=== PATIENT | male | born 1975 | race Caucasian/White ===

== ENCOUNTER → 2019-09-12 12:49 | Outpatient (BNVA) | payer OTHER, SELFPAY | PROVIDERS: Family Provider Nurse Practitioner; PCP Internal Medicine; Visit Provider Nurse Practitioner Psychiatric/Mental Health | DX: F43.12 Post-traumatic stress disorder, chronic (principal); F06.4 Anxiety disorder due to known physiological condition | CPT/HCPCS: 99214; 99999 ==

== ENCOUNTER → 2019-10-10 09:39 | Outpatient (BNVA) | payer OTHER, SELFPAY | PROVIDERS: Family Provider Nurse Practitioner; PCP Internal Medicine; Visit Provider Nurse Practitioner Psychiatric/Mental Health | DX: F43.12 Post-traumatic stress disorder, chronic (principal); F06.4 Anxiety disorder due to known physiological condition | CPT/HCPCS: 99212 ==

== ENCOUNTER → 2019-12-03 07:57 | Outpatient (BNVA) | payer OTHER, SELFPAY | PROVIDERS: Family Provider Nurse Practitioner; Visit Provider Nurse Practitioner Psychiatric/Mental Health | DX: F43.12 Post-traumatic stress disorder, chronic (principal); F06.4 Anxiety disorder due to known physiological condition | CPT/HCPCS: G0463 ==

== ENCOUNTER → 2019-12-04 08:32 | Outpatient (BNVA) | payer OTHER, SELFPAY | PROVIDERS: Family Provider Nurse Practitioner; Visit Provider Counselor Professional | DX: F43.12 Post-traumatic stress disorder, chronic (principal); F16.283 Hallucinogen dependence with hallucinogen persisting perception disorder (flashbacks) | CPT/HCPCS: 90834 ==

== ENCOUNTER → 2020-01-01 08:50 | Outpatient (BNVA) | payer OTHER, SELFPAY | PROVIDERS: Family Provider Nurse Practitioner; Visit Provider Counselor Professional | DX: F43.12 Post-traumatic stress disorder, chronic (principal); F16.283 Hallucinogen dependence with hallucinogen persisting perception disorder (flashbacks) | CPT/HCPCS: 90834 ==

== ENCOUNTER 2020-01-13 15:46 | Outpatient (CLI) | payer OTHER, SELFPAY ==
--- NOTE | 2020-01-13 15:54 | CT_ITS ---
WS: [id number] CT THORACIC SPINE HISTORY: THORACIC SPINE PAIN TECHNIQUE: Contiguous 2.5 mm axial images are reviewed to thoracic spine. Images are reformatted in s agittal and coronal planes. All CT scans at [facility] use at least one of these dose opt imization techniques: automated exposure control; mA and/or kV adjustment per patient size (includes targeted exams where dose is matched to clinical indication); or iterative reconstruction. DLP: 1322.50 mGy-cm. COMPARISON: MRI of thoracic spine 12/08/2016 Mild increase in thoracic kyphosis. There is very slight anterior wedging of T6, T7 and T8 8. No acut e fractures. Dorsal column stimulator electrodes posterior to the thecal sac at the T6-7 level. T1-2: Mild osteophytic ridging. No stenosis. T2-3: Normal. T3-4: Normal. T4-5: Normal. T5-6: Normal. T6-7: Bilateral foramina are not well-visualized due to artifact from the electrodes. T7-8: Normal. T8-9: Normal. T9-10: Mild bilateral facet joint arthritis and vertebral body osteophytes. No significant stenosis. T10-11: Very minimal encroachment upon the thecal sac by osteophyte disease and facet disease. Mild bilateral foraminal stenosis. T11-12: No significant stenosis. Paravertebral soft tissues are negative. CT/CT thoracic spin wo con* [id number] IMPRESSION: 1. No significant central or foraminal stenosis. 2. Mild bilateral foraminal stenosis at T10-11 due to osteophytes and facet di sease. Not significantly progressed since 2017. 3. No significant disc protrusions.
== END 2020-01-13 15:47 | disposition home or self-care (01) ==
LOC: RADWPI 15:51
PROVIDERS: PCP Nurse Practitioner; Visit Provider Nurse Practitioner
DX: M54.6 Pain in thoracic spine (principal); M48.04 Spinal stenosis, thoracic region
CPT/HCPCS: 72128

== ENCOUNTER → 2020-01-15 08:16 | Outpatient (BNVA) | payer OTHER, SELFPAY | PROVIDERS: Family Provider Nurse Practitioner; Visit Provider Counselor Professional | DX: F43.12 Post-traumatic stress disorder, chronic (principal); F16.283 Hallucinogen dependence with hallucinogen persisting perception disorder (flashbacks) | CPT/HCPCS: 90834 ==

== ENCOUNTER → 2020-01-29 08:16 | Outpatient (BNVA) | payer OTHER, SELFPAY | PROVIDERS: Family Provider Nurse Practitioner; Visit Provider Counselor Professional | DX: F43.12 Post-traumatic stress disorder, chronic (principal); F16.283 Hallucinogen dependence with hallucinogen persisting perception disorder (flashbacks) | CPT/HCPCS: 90834 ==

== ENCOUNTER → 2020-02-21 09:16 | Outpatient (BNVA) | payer OTHER, SELFPAY | PROVIDERS: Family Provider Nurse Practitioner; Visit Provider Counselor Professional | DX: F16.283 Hallucinogen dependence with hallucinogen persisting perception disorder (flashbacks) (principal); F43.12 Post-traumatic stress disorder, chronic | CPT/HCPCS: 90832; 90834 ==

== ENCOUNTER → 2020-03-02 10:20 | Outpatient (BNVA) | payer OTHER, SELFPAY | PROVIDERS: Family Provider Nurse Practitioner; Visit Provider Nurse Practitioner Psychiatric/Mental Health | DX: F06.4 Anxiety disorder due to known physiological condition (principal); F43.12 Post-traumatic stress disorder, chronic | CPT/HCPCS: 99212 ==

== ENCOUNTER → 2020-03-18 08:23 | Outpatient (BNVA) | payer OTHER, SELFPAY | PROVIDERS: Family Provider Nurse Practitioner; Visit Provider Counselor Professional | DX: F43.12 Post-traumatic stress disorder, chronic (principal); F16.283 Hallucinogen dependence with hallucinogen persisting perception disorder (flashbacks); F41.9 Anxiety disorder, unspecified | CPT/HCPCS: 90834 ==

== ENCOUNTER → 2020-04-29 08:09 | Outpatient (BNVA) | payer OTHER, SELFPAY | PROVIDERS: Family Provider Nurse Practitioner; Visit Provider Counselor Professional | DX: F43.12 Post-traumatic stress disorder, chronic (principal); F16.283 Hallucinogen dependence with hallucinogen persisting perception disorder (flashbacks); F41.9 Anxiety disorder, unspecified | CPT/HCPCS: 90834 ==

== ENCOUNTER → 2020-05-20 08:56 | Outpatient (BNVA) | payer OTHER, SELFPAY | PROVIDERS: Family Provider Nurse Practitioner; Visit Provider Counselor Professional | DX: F43.12 Post-traumatic stress disorder, chronic (principal); F41.1 Generalized anxiety disorder | CPT/HCPCS: 90834 ==

== ENCOUNTER → 2020-05-25 08:22 | Outpatient (BNVA) | payer OTHER, SELFPAY | PROVIDERS: Family Provider Nurse Practitioner; Visit Provider Nurse Practitioner Psychiatric/Mental Health | DX: F06.4 Anxiety disorder due to known physiological condition (principal); F43.12 Post-traumatic stress disorder, chronic | CPT/HCPCS: 99213 ==

== ENCOUNTER → 2020-07-17 13:53 | Outpatient (BNVA) | payer OTHER, SELFPAY | PROVIDERS: Family Provider Nurse Practitioner; Visit Provider Counselor Professional | DX: F43.12 Post-traumatic stress disorder, chronic (principal); F16.283 Hallucinogen dependence with hallucinogen persisting perception disorder (flashbacks); F41.9 Anxiety disorder, unspecified | CPT/HCPCS: 90834 ==

== ENCOUNTER → 2020-08-27 14:54 | Outpatient (BNVA) | payer OTHER, SELFPAY | PROVIDERS: Family Provider Nurse Practitioner; Visit Provider Counselor Professional | DX: F43.12 Post-traumatic stress disorder, chronic (principal); F41.1 Generalized anxiety disorder | CPT/HCPCS: 90834 ==

== ENCOUNTER → 2020-09-24 10:50 | Outpatient (BNVA) | payer OTHER, SELFPAY | PROVIDERS: Family Provider Nurse Practitioner; Visit Provider Counselor Professional | DX: F43.12 Post-traumatic stress disorder, chronic (principal); F16.283 Hallucinogen dependence with hallucinogen persisting perception disorder (flashbacks); F41.9 Anxiety disorder, unspecified | CPT/HCPCS: 90834 ==

== ENCOUNTER → 2020-09-29 08:04 | Outpatient (BNVA) | payer OTHER, SELFPAY | PROVIDERS: Family Provider Nurse Practitioner; Visit Provider Nurse Practitioner Psychiatric/Mental Health | DX: F06.4 Anxiety disorder due to known physiological condition (principal); F43.12 Post-traumatic stress disorder, chronic | CPT/HCPCS: 99213 ==

== ENCOUNTER → 2020-12-29 07:55 | Outpatient (BNVA) | payer OTHER, SELFPAY | PROVIDERS: Family Provider Nurse Practitioner; Visit Provider Nurse Practitioner Psychiatric/Mental Health | DX: F06.4 Anxiety disorder due to known physiological condition (principal); F43.12 Post-traumatic stress disorder, chronic | CPT/HCPCS: 99213 ==

== ENCOUNTER 2021-02-01 15:22 | Outpatient (CLI) | payer OTHER, SELFPAY ==
--- NOTE | 2021-02-01 15:40 | CT_ITS ---
WS: [id number] Exam: CT cervical spin wo con* [id number] Date/Time of Exam: 02/01/2021 3:40 PM Reason For Exam: THORACIC AND CERVICAL DEGENERATIVE DISC DISEASE DLP: 1855.[address] scans at [facility] use at least one of these dose optimization techniques: automated e xposure control; mA and/or kV adjustment per patient size (includes targeted exams where dose is matc hed to clinical indication); or iterative reconstruction. Comparison 07/20/2017. No fracture or dislocation. Stable-appearing interbody fusion at C5-C6 with anterior plate and screw fixation. No sign of obvious hardware failure. The bony spinal canal is patent. The bony neural partha raul are patent. No sign of bone destruction. Detail of the spinal cord and discs are very limited wit hout intrathecal contrast. Goitrous enlargement of the thyroid gland noted. CT/CT cervical spin wo con* [id number] IMPRESSION: 1. Stable-appearing interbody fusion at C5-C6 in good alignment. 2. No sign of obvious spinal canal stenosis or foraminal stenosis. 3. Goitrous enlargement of the thyroid gland.
--- NOTE | 2021-02-01 15:40 | CT_ITS ---
WS: [email or web address] Exam: CT thoracic spin wo con* [id number] Date/Time of Exam: 02/01/2021 3:40 PM Reason For Exam: THORACIC AND CERVICAL DEGENERATIVE DISC DISEASE DLP: 1236.[address] scans at [facility] use at least one of these dose optimization techniques: automated e xposure control; mA and/or kV adjustment per patient size (includes targeted exams where dose is matc hed to clinical indication); or iterative reconstruction. The T-spine is evaluated in the axial plane with sagittal coronal reconstructed images. Compared to p rior study 01/13/2020. There was no sign of disc herniation or central spinal canal stenosis. The bony spinal canal is paten t. No significant foraminal stenosis seen. No bone destruction or fracture. Mild spondylosis. Neuros timulator electrodes are in the lower thoracic spinal canal. Paraspinal soft tissue structures are un remarkable. No significant scoliosis or developmental anomaly CT/CT thoracic spin wo con* [id number] IMPRESSION: 1. No sign of central canal stenosis or disc herniation. 2. Minimal spondylosis. No fracture or bone destruction. 3. Neurostimulator electrodes in the mid thoracic spinal canal.
--- NOTE | 2021-02-01 15:41 | XR_ITS ---
WS: [email or web address] Exam: XR shoulder RT min 2V* [id number] Date/Time of Exam: 02/01/2021 3:42 PM Reason For Exam: SHOULDER PAIN The projections of the shoulder reveal no fractures, anomalies, soft tissue swelling, or calcificatio ns. There is normal bony alignment. No irregularity of the bony architecture is noted. XR/XR shoulder RT min 2V* [id number] IMPRESSION: Negative right shoulder.
== END 2021-02-01 15:23 | disposition home or self-care (01) ==
PROVIDERS: Visit Provider General Practice
DX: M51.34 Other intervertebral disc degeneration, thoracic region (principal); M50.30 Other cervical disc degeneration, unspecified cervical region; M25.511 Pain in right shoulder; E04.9 Nontoxic goiter, unspecified
CPT/HCPCS: 72125; 72128; 73030

== ENCOUNTER → 2021-02-25 14:00 | Outpatient (BNVA) | payer OTHER, SELFPAY | PROVIDERS: PCP Family Medicine; Visit Provider Counselor Professional | DX: F43.12 Post-traumatic stress disorder, chronic (principal); F16.283 Hallucinogen dependence with hallucinogen persisting perception disorder (flashbacks); F41.9 Anxiety disorder, unspecified | CPT/HCPCS: 90832 ==

== ENCOUNTER → 2021-03-05 12:24 | Outpatient (BNVA) | payer OTHER, SELFPAY | PROVIDERS: PCP Family Medicine; Visit Provider Counselor Professional | DX: F43.12 Post-traumatic stress disorder, chronic (principal); F16.283 Hallucinogen dependence with hallucinogen persisting perception disorder (flashbacks); F41.9 Anxiety disorder, unspecified | CPT/HCPCS: 90834 ==

== ENCOUNTER → 2022-03-16 09:53 | Outpatient (BNVA) | payer OTHER, SELFPAY | PROVIDERS: PCP Family Medicine; Visit Provider Podiatrist Foot & Ankle Surgery | DX: M25.371 Other instability, right ankle (principal); T84.84XA Pain due to internal orthopedic prosthetic devices, implants and grafts, initial encounter; Y79.2 Prosthetic and other implants, materials and accessory orthopedic devices associated with adverse incidents; M96.0 Pseudarthrosis after fusion or arthrodesis | CPT/HCPCS: 73610; 73630; 99204 ==

== ENCOUNTER → 2022-06-29 11:21 | Outpatient (BNVA) | payer OTHER, SELFPAY | PROVIDERS: PCP Family Medicine; Visit Provider Podiatrist Foot & Ankle Surgery | DX: T84.84XA Pain due to internal orthopedic prosthetic devices, implants and grafts, initial encounter (principal); Y79.2 Prosthetic and other implants, materials and accessory orthopedic devices associated with adverse incidents; M96.0 Pseudarthrosis after fusion or arthrodesis | CPT/HCPCS: 73630; 99214 ==

== ENCOUNTER → 2022-09-28 10:37 | Outpatient (BNVA) | payer OTHER, SELFPAY | PROVIDERS: PCP Family Medicine; Visit Provider Podiatrist Foot & Ankle Surgery | DX: T84.84XA Pain due to internal orthopedic prosthetic devices, implants and grafts, initial encounter (principal); M96.0 Pseudarthrosis after fusion or arthrodesis; Y79.2 Prosthetic and other implants, materials and accessory orthopedic devices associated with adverse incidents | CPT/HCPCS: 73630; 99213 ==

== ENCOUNTER → 2023-02-08 10:04 | Outpatient (BNVA) | payer OTHER, SELFPAY | PROVIDERS: PCP Family Medicine; Visit Provider Podiatrist Foot & Ankle Surgery | DX: M79.672 Pain in left foot (principal); T84.84XA Pain due to internal orthopedic prosthetic devices, implants and grafts, initial encounter; M96.0 Pseudarthrosis after fusion or arthrodesis; Y79.2 Prosthetic and other implants, materials and accessory orthopedic devices associated with adverse incidents | CPT/HCPCS: 99213 ==

== ENCOUNTER 2023-12-19 08:22 | Outpatient (CLI) | payer OTHER, SELFPAY ==
--- NOTE | 2023-12-19 08:24 | MR_ITS ---
WS: [id number] MRI THORACIC SPINE noncontrast HISTORY: THORACIC DEGENERATIVE DISC DISEASE COMPARISON: 12/08/2016 TECHNIQUE: Multiplanar sequences are performed in sagittal and axial planes. Mild increase in thoracic kyphosis. Reidentified is very slight anterior wedging of the T6, T7 and T8 . No acute fractures. Schmorl's node along the superior endplate of T7. Cord signal is unchanged. The re is no atrophy or enlargement. Reidentified is subtle increased T2 signal in the central cervical c ord at the T8-9 level which may be a small syrinx. T1-2: Small bilateral paracentral disc protrusions. T2-3: Normal. T3-4: Moderate central disc protrusion contacting and slightly displacing the ventral thecal sac. Sli ghtly increased in size as compared to 12/08/2016. T4-5: Normal. T5-6: Normal. T6-7: 6 very shallow LEFT paracentral disc or osteophyte. No stenosis. T7-8: Normal. T8-9: Small central disc protrusion and facet arthritis. Mild bilateral foraminal stenosis. T9-10: Central disc protrusion contacting the ventral thecal sac with moderate facet joint arthritis. Mild to moderate central with bilateral foraminal stenosis has progressed since 2017. T10-11: Bilateral facet arthritis and moderate foraminal stenosis. T11-12: Normal. MR/MR thoracic spin wo con* [id number] IMPRESSION: 1. No acute thoracic spine fractures. 2. Stable mild anterior wedging of T6, T7 and T8. 3. T9-10: Central disc protrusion and facet arthritis resulting in mild to mod erate central and bilateral foraminal stenosis. Progressed since 2017. 4. T10-11: Moderate bilateral foraminal stenosis. 5. T3-4: Moderate central disc protrusion contacting and displacing the ventra l thecal sac. 6. Increased focal T2 signal in the central thoracic cord is unchanged. May be a small syrinx which has been present on prior studies.
== END 2023-12-19 08:23 | disposition home or self-care (01) ==
LOC: RAD 08:23
PROVIDERS: PCP Nurse Practitioner; Visit Provider Nurse Practitioner Family
DX: M51.34 Other intervertebral disc degeneration, thoracic region (principal); M51.24 Other intervertebral disc displacement, thoracic region; M51.44 Schmorl's nodes, thoracic region; M46.94 Unspecified inflammatory spondylopathy, thoracic region; M99.62 Osseous and subluxation stenosis of intervertebral foramina of thoracic region
CPT/HCPCS: 72146

== ENCOUNTER → 2024-01-17 09:57 | Outpatient (BNVA) | payer OTHER, SELFPAY | PROVIDERS: PCP Nurse Practitioner; Visit Provider Podiatrist Foot & Ankle Surgery | DX: M79.672 Pain in left foot (principal); T84.84XA Pain due to internal orthopedic prosthetic devices, implants and grafts, initial encounter; M96.0 Pseudarthrosis after fusion or arthrodesis; Y79.2 Prosthetic and other implants, materials and accessory orthopedic devices associated with adverse incidents | CPT/HCPCS: 99213 ==

== ENCOUNTER 2024-06-27 14:10 | Emergency (ER) | payer OTHER, SELFPAY ==
[2024-06-27] VITALS (8 sets, daily range): BP systolic 126–156; BP diastolic 76–95; PULSE 47–63; RESP 17; TEMP 36.9; O2SAT 91–100; BMI 24.4
[2024-06-27 14:45] LABS: Basophils % 0.2 %; Eosinophils % 0.1 %; Hematocrit 42.3 % (37-53); Lymphocytes # 4.5 10^3/uL (0.8-4.8); Lymphocytes % 22.7 %; Mean Corpuscular Hemoglobin 31.4 pg (27-33); Mean Corpuscular Volume 89.8 fl (82-101); Mean Platelet Volume 8.8 fL (7.4-10.4); Monocytes # 1.1 10^3/uL (0.2-0.9); Monocytes % 5.3 %; Neutrophils # 14.09 10^3/uL (1.8-7.7); Neutrophils % 71.3 %; Nucleated Red Blood Cells % 0 %; Platelet Count 302 10^3/cmm (157-399); Red Blood Count 4.71 10^6/uL (3.85-5.65); Red Cell Distribution Width 12.7 % (12.1-15.1); White Blood Count 19.76 10^3/uL (3.29-11.43)
[2024-06-27 14:58] LABS: Alanine Aminotransferase 15 U/L (0-41); Albumin Level 4.6 g/dL (3.5-5.2); Alkaline Phosphatase 64 U/L (40-130); Aspartate Amino Transferase 18 U/L (0-40); Blood Urea Nitrogen 22 mg/dL (6-20); Calcium 9.5 mg/dL (8.5-10.5); Carbon Dioxide 32 mmol/L (22-29); Chloride 95 mmol/L (98-107); Creatinine Clr Calc Pharmacy 116.4739; Glomerular Filtration Rate 89.3 mL/min (90-130); Glucose 111 mg/dL (65-115); Lipase 36 U/L (13-60); Osmolality Calculated 294 mOsm/kg (285-295); Sodium 140 mmol/L (136-145); Total Bilirubin 0.7 mg/dL (0.15-1.2); Total Protein 7.6 g/dL (6.6-8.7)
[2024-06-27 15:01] LABS: Anion Gap 16.6 (5-19); Potassium 3.6 mmol/L (3.5-5.1)
--- NOTE | 2024-06-27 16:31 | CTR_ITS ---
PROCEDURE INFORMATION: Exam: CT Chest With Contrast; Diagnostic Exam date and time: 06/27/2024 5:12 PM Age: 48 years old Clinical indication: Nausea and vomiting; Other: Abdominal pain, n/v, constipation TECHNIQUE: Imaging protocol: Diagnostic computed tomography of the chest with contrast. Radiation optimization: All CT scans at this facility use at least one of these dose optimization techniques: automated exposure control; mA and/or kV adjustment per patient size (includes targeted exams where dose is matched to clinical indication); or iterative reconstruction. Contrast material: OMNI 350; Contrast volume: 100 ml; Contrast route: INTRAVENOUS (IV); COMPARISON: thoracic missy courtney con* [id number] 12/19/2023 8:43 AM RADIATION DOSE METRICS: Total DLP (mGy-cm): 1069.38 FINDINGS: Thyroid: Grossly unremarkable. Lungs: No focal consolidation. Pleural spaces: No pleural effusion. No pneumothorax. Heart: No cardiomegaly. No pericardial effusion. Mediastinal space: Trachea and central airways are grossly patent. No evidence of mediastinal mass or hematoma. Lymph nodes: No evidence of mediastinal or hilar adenopathy. Vasculature: No aneurysmal dilatation of the thoracic aorta. No evidence of dissection. Though this study is not tailored to evaluate for pulmonary thromboembolism, there is no evidence of PE within limitations of respiratory motion. Bones/joints: No evidence of acute fracture or aggressive osseous lesion. Soft tissues: No fluid collection or hematoma in the superficial soft tissues. PROCEDURE INFORMATION: Exam: CT Abdomen And Pelvis With Contrast Exam date and time: 06/27/2024 5:12 PM Age: 48 years old Clinical indication: Nausea and vomiting; Other: Abdominal pain, n/v, constipation TECHNIQUE: Imaging protocol: Computed tomography of the abdomen and pelvis with contrast. Radiation optimization: All CT scans at this facility use at least one of these dose optimization techniques: automated exposure control; mA and/or kV adjustment per patient size (includes targeted exams where dose is matched to clinical indication); or iterative reconstruction. Contrast material: OMNI 350; Contrast volume: 100 ml; Contrast route: INTRAVENOUS (IV); COMPARISON: thoracic [facility] con* [id number] 12/19/2023 8:43 AM RADIATION DOSE METRICS: Total DLP (mGy-cm): 1069.38 FINDINGS: Diaphragm: No evidence of diaphragmatic defect. Mild wall thickening of the distal esophagus, which may reflect esophagitis. Liver: No focal hepatic lesion. Gallbladder and biliary ducts: Status post cholecystectomy. Mild central intrahepatic biliary dilatation. There is mild extrahepatic biliary dilatation, frequently seen post cholecystectomy. CBD measures up to 8 mm. No evidence of intraductal stone. Pancreas: Unremarkable. Spleen: Unremarkable. Adrenal glands: Unremarkable. Kidneys and ureters: There is a simple appearing left-sided renal cyst for which dedicated imaging follow-up is not required. Otherwise no evidence of renal parenchymal abnormality. No hydronephrosis or ureteral stone. Stomach and bowel: No evidence of bowel obstruction or perienteric inflammatory changes. Wall thickening of the gastric pylorus/duodenum bulb. Appendix: Normal appendix. Intraperitoneal space: No evidence of free air or fluid collection. Vasculature: Moderate aortobiiliac atherosclerosis without aneurysmal dilatation or dissection. The celiac trunk, SMA and VELMA are grossly patent. No evidence of IVC thrombus. The portal vein, SMV and splenic veins are grossly patent. Lymph nodes: No adenopathy. Urinary bladder: Grossly unremarkable. Reproductive: Grossly unremarkable. Bones/joints: No evidence of acute fracture or aggressive osseous lesion. Soft tissues: No evidence of fluid collection or hematoma in the superficial soft tissues. CT/CT chest abdpel w/*[id number] IMPRESSION: 1. No evidence of acute abnormality in the chest. IMPRESSION: 1. No evidence of acute abnormality in the abdomen or pelvis. 2. Mild wall thickening of the gastric pylorus/duodenum bulb, possibly reflecting a nonspecific gastroenteritis or peptic ulcer disease. If persistently symptomatic, consider follow-up outpatient GI evaluation. 3. Mild thickening of the distal esophagus, possibly reflecting esophagitis.
[2024-06-27] MEDS: ondansetron 2 mg/ML SDV 2 mL 4 MG IVP ×2 (16:51→18:20)
[2024-06-27] MEDS: HYDROmorphone 0.5 MG/0.5 ML INJ IVP (16:51)
[2024-06-27] MEDS: lactated ringers 1,000 ML 999 ML IV (16:56)
[2024-06-27 17:21] LABS: INR 0.92 (0.8-1.2)
[2024-06-27 17:22] LABS: Partial Thromboplastin Time 32.2 SECONDS (23.9-36.7)
[2024-06-27] MEDS: iohexol 350 mg/mL 500 mL Btl (per mL) IV (17:23)
[2024-06-27 17:26] LABS: Creatine Phosphokinase 85 U/L (39-308); Phosphorus 3.4 mg/dL (2.5-4.5)
[2024-06-27 17:27] LABS: Alcohol Level < 10 mg/dL (0-10); Lactic Sepsis W/Reflex 1.6 mmol/L (0.5-2.2)
[2024-06-27] MEDS: HYDROmorphone 0.5 MG/0.5 ML INJ 1 MG IVP (18:20)
--- NOTE | 2024-06-27 18:31 | ECG_ITS ---
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 Measurements Intervals [place] Rate: 54 P: 50 IA: 148 QRS: 56 QRSD: 105 T: 62 QT: 440 QTc: 417 Interpretive Statements SINUS BRADYCARDIA Compared to ECG 05/05/2016 16:42:53 Intraventricular conduction delay no longer present Prolonged QT interval no longer present Electronically Signed On 06-29-2024 13:08:19 CDT by Shirley Velazquez M.D. [email or web address] [id number]
[2024-06-27 18:53] LABS: Bilirubin Urine Negative (Negative); Blood Urine Negative (Negative); Glucose Urine UA Negative (Normal); Ketones Urine Trace (Negative); Leukocyte Esterase Urine Negative (Negative); Nitrate Urine Negative (Negative); Protein Urine 1+ (Negative); Urine Appearance Clear (CLEAR); Urine Color Yellow (Yellow); pH Urine >=9.0 (5-7)
[2024-06-27 18:55] LABS: Add Urine Microscopic? YES; Bacteria Urine None Seen /hpf; Squamous Epithelial Cell Urine 0-5 /hpf (0-5); WBC Urine 0-5 /hpf (0-5)
[2024-06-27 18:59] LABS: Specific Gravity, Urine 1.072 (1.005-1.030)
[2024-06-27 19:00] LABS: Add Urine Culture? No
--- NOTE | 2024-06-27 19:49 | W.ED.NAVMDI ---
HPI - Nausea/Vomiting/Diarrhea General: Chief complaint: Nausea/Vomiting/Diarrhea Stated complaint: n,v, high hernia Time Seen by Provider: 06/27/24 16:17 Source: patient and family Mode of arrival: ambulatory Limitations: no limitations History of Present Illness: Patient with severe nausea vomiting, history of hiatal hernia. Did have an episode of diarrhea. Last bowel movement was 3 days ago. The bowel movements have become less and less frequent recently. He reports a 60 pound weight loss over the past 12 months with at least 10 of that weight loss in the last month. No intention of losing weight. He reports he is just unable to keep food or fluids down. Feels dehydrated. In the ER he is tolerating ice and water down. Was still having acid reflux actively here in the ER. Has been prescribed Carafate by the [place] but is not taking it. Is also been prescribed Prilosec by the [place] and has not been taking it. Related Data Home Medications ?Medication ?Instructions ?Recorded ?Confirmed cetirizine 10 mg tablet 10 mg PO DAILY 06/27/24 06/27/24 diclofenac sodium 1 % topical gel 4 g topical QID 06/27/24 06/27/24 rosuvastatin 10 mg tablet 10 mg PO DAILY 06/27/24 06/27/24 sucralfate 1 gram tablet 1 g PO QID 06/27/24 06/27/24 trazodone 150 mg tablet 150 mg PO DAILY 06/27/24 06/27/24 Previous Rx's ?Medication ?Instructions ?Recorded metoclopramide HCl 10 mg tablet 10 mg PO Q8H PRN nausea and 06/27/24 (Reglan) vomiting #30 tabs ondansetron 8 mg disintegrating 8 mg PO Q8H PRN nausea and 06/27/24 tablet vomiting 5 days #30 tabs pantoprazole 40 mg tablet,delayed 40 mg PO DAILY 6 weeks #45 tabs 06/27/24 release (Protonix) sucralfate 1 gram tablet (Carafate) 1 g PO TID 4 weeks #84 tabs 06/27/24 Allergies Allergy/AdvReac Type Severity Reaction Status Date / Time codeine Allergy Mild Upsets Verified 05/06/24 12:51 stomach morphine Allergy Mild Upsets Verified 05/06/24 12:51 stomach Review of Systems General: Reports: 10 or more systems reviewed and unremarkable except in HPI and below PFSH ED PFSH: Medical History Chronic post-traumatic stress disorder (PTSD) See below. Social History Smoking and tobacco/nicotine status: former use of tobacco/nicotine Quit status (tobacco/nicotine): quit date established Second hand smoke exposure: Yes Current gender identity: Male Physical Exam Const: COMMON NORMALS: no acute distress, average body habitus, patient oriented x3, healthy appearing, alert and well nourished GENERAL APPEARANCE: well kempt and well developed HENMT: COMMON NORMALS: normocephalic, atraumatic, external ears normal and moist oral mucous membranes HEAD & SCALP: normocephalic and atraumatic EXTERNAL EAR: Yes external ears normal Eye: COMMON NORMALS: Equal, round and reactive pupils present, EOMs intact bilaterally and conjunctivae normal CONJUNCTIVA: Yes conjunctivae normal PUPIL: Yes Equal, round and reactive pupils present Neck/C-Spine: COMMON NORMALS: full ROM, no lymphadenopathy and supple Chest: CHEST: Yes Symmetrical chest wall rise and No Surgical scars present (Chest) Resp: COMMON NORMALS: normal respiratory effort, No retractions, No use of accessory muscles and clear to auscultation bilaterally AUSCULTATION: clear to auscultation bilaterally Cardio: COMMON NORMALS: regular rate, regular rhythm, S1 normal heart sound present, S2 normal heart sound present, No gallops present (Cardio), No clicks present (Cardio), No murmurs present (Cardio) and No rub (Cardio) RATE: regular rate RHYTHM: regular rhythm HEART SOUNDS: S1 normal heart sound present, S2 normal heart sound present and no murmurs PERIPHERAL PULSES: other (Radial pulses 2+ and symmetric) GI: COMMON NORMALS: Soft to palpation and no masses INSPECTION: No abdominal distension PALPATION: Yes Soft to palpation, No Guarding due to palpation present (GI) and No Rebound tenderness present OTHER: Global abdominal tenderness there worse in the epigastric. No guarding or rebound. : COMMON NORMALS: Yes no CVA tenderness BLADDER/KIDNEY EXAM: Yes no CVA tenderness Back/Pelvis: COMMON NORMALS: no CVA tenderness Extremity: COMMON NORMALS: normal to inspection, full ROM, capillary refill normal and no clubbing, cyanosis or edema Neuro: COMMON NORMALS: patient oriented x3 SENSORIUM/ORIENTATION: Yes alert Psych: APPEARANCE: Yes well kempt Skin: COMMON NORMALS: no rashes or lesions noted, no wounds, turgor normal and no jaundice GENERAL SKIN EXAM: no rashes or lesions noted and turgor normal Course Vital Signs: Vital signs: Vital Signs Temperature 98.4 F 06/27/24 14:14 Pulse Rate 60 06/27/24 20:06 Respiratory Rate 17 06/27/24 14:14 Blood Pressure 128/80 06/27/24 20:06 Pulse Oximetry 91 06/27/24 20:06 Oxygen Delivery Me thod Room Air 06/27/24 19:30 MDM - Nausea/Vomiting/Diarrhea Medical Decision Making Patient concerns in severe weight loss difficulty swallowing. CT scan done which shows a thickened part of the esophagus and stomach given his history this is likely inflammation. I have advised patient to follow-up with GI as soon as possible. [facility]. He has had scopes in the past and biopsies done in the past. He has been placed on Carafate and Prilosec in the past for this problem as well. Here portal he is stopped those because he felt like they were bad for him long-term based on some things he had read. However now he is found himself in the position of being unable to tolerate food or drink which I hypothesized is also bad in the long-term. Affect patient about his concerns with daily medication and functional quality of life along with actual length of life with being able to eat. Patient and seem to express understanding. Advised him to take medications as prescribed and again follow-up with GI. May need off-and-on treatment if he does not want to continue daily treatment. Differential includes gastroenteritis, small bowel obstruction last bowel movement 3 days ago. Hiatal hernia, volvulus, intussusception, ileus, constipation, malignancy. Workup from that initial diagnostic differential seems to relate more of a gastritis and esophagitis secondary to long-term reflux. EKG personally reviewed, no previous to comparison. EKG performed at 1831, reviewed 183. Sinus bradycardia rate of 54, QTc 425, normal axis no ST elevation. Differential Diagnosis Likely gastroenteritis Lab Data 06/27/24 14:34 06/27/24 14:34 Radiology Impressions Chest/Abdomen/Pelvis CT 06/27/24 16:31 IMPRESSION: 1. No evidence of acute abnormality in the chest. IMPRESSION: 1. No evidence of acute abnormality in the abdomen or pelvis. 2. Mild wall thickening of the gastric pylorus/duodenum bulb, possibly reflecting a nonspecific gastroenteritis or peptic ulcer disease. If persistently symptomatic, consider follow-up outpatient GI evaluation. 3. Mild thickening of the distal esophagus, possibly reflecting esophagitis. Laboratory Results WBC 19.76 10^3/uL (3.29-11.43) H 06/27/24 14:34 RBC 4.71 10^6/uL (3.85-5.65) 06/27/24 14:34 Hgb 14.80 g/dL (11.27-16.99) 06/27/24 14:34 Hct 42.3 % (37-53) 06/27/24 14:34 MCV 89.8 fl (82-101) 06/27/24 14:34 MCH 31.4 pg (27-33) 06/27/24 14:34 MCHC 35.0 g/dL (30-55) 06/27/24 14:34 RDW 12.7 % (12.1-15.1) 06/27/24 14:34 Plt Count 302 10^3/cmm (157-399) 06/27/24 14:34 MPV 8.8 fL (7.4-10.4) 06/27/24 14:34 Neut % (Auto) 71.3 % 06/27/24 14:34 Lymph % (Auto) 22.7 % 06/27/24 14:34 [place] % (Auto) 5.3 % 06/27/24 14:34 Eos % (Auto) 0.1 % 06/27/24 14:34 Baso % (Auto) 0.2 % 06/27/24 14:34 Neut # (Auto) 14.09 10^3/uL (1.8-7.7) H 06/27/24 14:34 Lymph # (Auto) 4.5 10^3/uL (0.8-4.8) 06/27/24 14:34 [place] # (Auto) 1.1 10^3/uL (0.2-0.9) H 06/27/24 14:34 Eos # (Auto) 0.0 10^3/uL (0.0-0.8) 06/27/24 14:34 Baso # (Auto) 0.0 10^3/uL (0.0-0.1) 06/27/24 14:34 Nucleated RBC % (auto) 0 % 06/27/24 14:34 Nucleated RBCs # 0.0 /100WBC 06/27/24 14:34 PT 13.00 SECONDS (12.1-14.9) 06/27/24 14:34 INR 0.92 (0.8-1.2) 06/27/24 14:34 APTT 32.2 SECONDS (23.9-36.7) 06/27/24 14:34 Sodium 140 mmol/L (136-145) 06/27/24 14:34 Potassium 3.6 mmol/L (3.5-5.1) 06/27/24 14:34 Chloride 95 mmol/L (98-107) L 06/27/24 14:34 Carbon Dioxide 32 mmol/L (22-29) H 06/27/24 14:34 Anion Gap 16.6 (5-19) 06/27/24 14:34 BUN 22 mg/dL (6-20) H 06/27/24 14:34 Creatinine 0.9 mg/dL (0.7-1.2) 06/27/24 14:34 GFR Calculation 89.3 mL/min (90-130) L 06/27/24 14:34 Glucose 111 mg/dL (65-115) 06/27/24 14:34 Calculated Osmolality 294 mOsm/kg (285-295) 06/27/24 14:34 Lactic Acid 1.6 mmol/L (0.5-2.2) 06/27/24 14:34 Calcium 9.5 mg/dL (8.5-10.5) 06/27/24 14:34 Phosphorus 3.4 mg/dL (2.5-4.5) 06/27/24 14:34 Magnesium 2.0 mg/dL (1.7-2.3) 06/27/24 14:34 Total Bilirubin 0.7 mg/dL (0.15-1.2) 06/27/24 14:34 AST 18 U/L (0-40) 06/27/24 14:34 ALT 15 U/L (0-41) 06/27/24 14:34 Alkaline Phosphatase 64 U/L (40-130) 06/27/24 14:34 Creatine Kinase 85 U/L (39-308) 06/27/24 14:34 Total Protein 7.6 g/dL (6.6-8.7) 06/27/24 14:34 Albumin 4.6 g/dL (3.5-5.2) 06/27/24 14: Globulin 3.0 g/dL (1.3-4.6) 06/27/24 14: Lipase 36 U/L (13-60) 06/27/24 14:34 Urine Color Yellow (Yellow) 06/27/24 18:35 Urine Appearance Clear (CLEAR) 06/27/24 18:35 Urine pH >=9.0 (5-7) A 06/27/24 18:35 Ur Specific [place] 1.072 (1.005-1.030) H 06/27/24 18:35 Urine Protein 1+ (Negative) A 06/27/24 18:35 Urine Glucose (UA) Negative (Normal) 06/27/24 18:35 Urine Ketones Trace (Negative) 06/27/24 18:35 Urine Blood Negative (Negative) 06/27/24 18:35 Urine Nitrate Negative (Negative) 06/27/24 18:35 Urine Bilirubin Negative (Negative) 06/27/24 18:35 Urine Urobilinogen 1.0 mg/dL (Negative) 06/27/24 18:35 Ur Leukocyte Esterase Negative (Negative) 06/27/24 18:35 Urine RBC 3-5 /hpf (0-2) 06/27/24 18:35 Urine WBC 0-5 /hpf (0-5) 06/27/24 18:35 Ur Squamous Epith Cells 0-5 /hpf (0-5) 06/27/24 18:35 Amorphous Sediment Not Reportable 06/27/24 18:35 Urine Bacteria None seen /hpf (NONE) 06/27/24 18:35 Hyaline Casts 0.40 /lpf 06/27/24 18:35 Ethyl Alcohol < 10 mg/dL (0-10) 06/27/24 14:34 All radiology interpretation(s) finalized by discharge Discharge Plan Discharge Patient Disposition: Home Clinical Impression: Gastritis, Esophagitis Condition: Stable Prescriptions: New sucralfate [Carafate] 1 gram tablet 1 g PO TID 28 Days Qty: 84 0RF pantoprazole [Protonix] 40 mg tablet,delayed release (DR/EC) 40 mg PO DAILY 42 Days Qty: 45 0RF metoclopramide HCl [Reglan] 10 mg tablet 10 mg PO Q8H PRN (Reason: nausea and vomiting) Qty: 30 0RF ondansetron 8 mg tablet,disintegrating 8 mg PO Q8H PRN (Reason: nausea and vomiting) 5 Days Qty: 30 1RF No Action cetirizine 10 mg Tablet 10 mg PO DAILY sucralfate 1 gram Tablet 1 g PO QID trazodone 150 mg Tablet 150 mg PO DAILY rosuvastatin 10 mg Tablet 10 mg PO DAILY diclofenac sodium 1 % Gel 4 g TOPICAL QID Rx Instructions: apply to single knee, ankle, foot; for foot includes sole/toes/top of foot Discharge Orders: Discharge ED (Routine); Ordered 06/27/24 Ordered By: Ronnie Menendez Referrals: Amrita Tarango, [employer] [Primary Care Provider, Nurse Practitioner] Discharge Diet: Advance as tolerated and As Directed Discharge Activity: Resume usual activity Patient Instructions: Esophagitis (ED) Print Language: Indonesian Coding Level of Care Code ED Family Helper for [facility]
[2024-06-27] MEDS: ondansetron hcl ODT 4 mg Tab 8 MG PO (19:58)
[2024-06-27] MEDS: lidocaine 2% viscous 15 ML, aluminum-mag hydrox-simethicon 30 ML, sucralfate oral liq 1 GM PO (19:59)
== END 2024-06-27 20:08 | disposition home or self-care (01) ==
PROVIDERS: Family Medicine; Emergency Provider Emergency Medicine; PCP Nurse Practitioner
DX: K29.70 Gastritis, unspecified, without bleeding (principal); K20.90 Esophagitis, unspecified without bleeding; Z87.891 Personal history of nicotine dependence
CPT/HCPCS: 36415; 71260; 74177; 80053; 80307; 81001; 82550; 83605; 83690; 83735; 84100; 85025; 85610; 85730; 93005; 96361; 96374; 96375; 96376; 99285; J1171; J2405; J7120; J9999; Q0162

== ENCOUNTER 2024-10-04 08:57 | Emergency (ER) | payer OTHER, SELFPAY ==
--- OUTSIDE RECORDS SUMMARY | 2024-08-20 08:56 | XMS_ITS | Encounter Summary ---
Author Name [facility] [place] [facility] [place] Address [address] [place] [address] Care Team Providers Care Brazer Crawler Torch Name Role Phone BRITTANY SANTOS Primary Care Provider Unavail able Selected Encounter This section includes the information on record at [place] for the Encounter. Date/Time Encounter Type Encounter Description Reason Pro vider Source Aug 20, 2024 01:56 PM Outpatient Encounter ADMIN PAT ACTIVTIES (MASNONCT) IHE Encounter Template Text not used by [place] Plan of Treatment: Future Appointments (+ 6 months) and Future Tests (+/- 45 days) The Plan of Treatment section includes future care activities for the patient from all [place] treatmentfacilities. This section includes future appointments and future orders which are active, pending or scheduled. Future Appointments This section includes appointments that were scheduled to occur 6 months from the date of the Encounter, up to a maximum of 20 appointments. The data comes from all [place] treatment facilities. Appointment Date/Time Appointment Type Appointme nt Facility Name Aug 27, 2024 11:00 AM AMBULATORY - MEDICINE [facility] Social History: Smoking Status (Most current) and Tobacco Use (All prior to encounter date) This section includes the most current, and the historical, smoking and tobacco- related health factors from the [place] facility where the Encounter took place. Current Smoking Status This section includes the most current smoking, or tobacco-related health factor, from the [place] facility where the Encounter took place. Date/Time Current Smoking Status Comment Facil ity Dec 08, 2021 02:00 PM PREVIOUS SMOKER POP LAR [facility] Tobacco Use History This section includes a history of the smoking, or tobacco-related health factors, that were collected on or before the date of the Encounter. The data comes from the [place] facility where the Encounter took place. Date/Time Smoking Status/Tobacco Use Comment F acility Dec 08, 2021 02:00 PM [facility] Advance Directives: All historical and current Section Date Range: From patient's date of to the date document was created. This section includes ALL of a patient's completed or amended [place] Advance and Rescinded Directives. The entries below indicate that a directive exists for the patient, but an actual copy is not included with this document. The data comes from all [place] facilities. Date Advance Directives Provider Source Aug 18, 2011 ADVANCE DIRECTIVE DISCUSSION ROX MATUTE [facility] Encounter Notes: All associated encounter notes This section contains the clinical notes associated to the Encounter. Date/Time Encounter Note(s) Provider Source Aug 20, 2024 01:57 PM CAREGIVER CERTIFIC ATE: LOCAL TITLE: [facility] ADMINISTRATIVE NOTE STANDARD TITLE: CAREGIVER CERTIFICATE DATE OF NOTE: AUG 20, 2024@13:57 ENTRY DATE: AUG 20, 2024@13:57:23 AUTHOR: CHAVO PAUL EXP COSIGNER: URGENCY: STATUS: COMPLETED [facility] ADMINISTRATIVE NOTE Has ADDENDA [facility] wellness contact scheduled with caregiver for 08/26/2024 at 11:00am. /abigail/ CHAVO PAUL RN MSN Signed: 08/20/2024 13:58 08/22/2024 ADDENDUM STATUS: COMPLETED [facility] wellness contact scheduled with caregiver for 08/26/2024 at 11:00am was canceled by clinic. [facility] wellness contact rescheduled with caregiver for 08/28/2024 at 11:00am. /pushpa PAUL RN MSN Signed: 08/22/2024 11:10 CHAVO PAUL [facility]
--- OUTSIDE RECORDS SUMMARY | 2024-08-28 06:00 | XMS_ITS | Encounter Summary ---
Author Name [facility] [place] [facility] [place] Address [address] [place] [address] Care Team Providers Care Harm Reduction Worker Name Role Phone BRITTANY SANTOS Primary Care Provider Unavail able Selected Encounter This section includes the information on record at [place] for the Encounter. Date/Time Encounter Type Encounter Description Reason Provider Source Aug 28, 2024 11:00 AM CASE MANAGEMENT CAREGIVER SUPPORT PROGRAM ICD-10-CM Z71.9 Counseling, unspecified MAURILIO PAUL Encounter Template Text not used by [place] Assessments - Encounter Diagnoses This section includes the primary and secondary diagnoses documented for the Encounter. Date/Time Primary/Secondary Diagnosis Diagnosis Name Provider Source Aug 28, 2024 12:17 PM PRIMARY Counseling, unspecified ADRIANA PAUL [facility] Social History: Smoking Status (Most current) and Tobacco Use (All prior to encounter date) This section includes the most current, and the historical, smoking and tobacco- related health factors from the [place] facility where the Encounter took place. Current Smoking Status This section includes the most current smoking, or tobacco-related health factor, from the [place] facility where the Encounter took place. Date/Time Current Smoking Status Comment Facil itclara Dec 08, 2021 02:00 PM PREVIOUS SMOKER [facility]VEEN [facility] Tobacco Use History This section includes a history of the smoking, or tobacco-related health factors, that were collected on or before the date of the Encounter. The data comes from the [place] facility where the Encounter took place. Date/Time Smoking Status/Tobacco Use Comment F acility Dec 08, 2021 02:00 PM PREVIOUS SMOKER PARVEEN [facility] Advance Directives: All historical and current Section Date Range: From patient's date of to the date document was created. This section includes ALL of a patient's completed or amended [place] Advance and Rescinded Directives. The entries below indicate that a directive exists for the patient, but an actual copy is not included with this document. The data comes from all [place] facilities. Date Advance Directives Provider Source Aug 18, 2011 ADVANCE DIRECTIVE DISCUSSION ROX MATUTE [facility] Encounter Notes: All associated encounter notes This section contains the clinical notes associated to the Encounter. Date/Time Encounter Note(s) Provider Source Aug 28, 2024 11:00 AM CAREGIVER CERTIFIC ATE: LOCAL TITLE: [facility] WELLNESS CONTACT STANDARD TITLE: CAREGIVER CERTIFICATE DATE OF NOTE: AUG 28, 2024@11:00 ENTRY DATE: AUG 28, 2024@11:00:21 AUTHOR: CHAVO PAUL COSIGNER: URGENCY: STATUS: COMPLETED Caregiver Support Program [facility] Wellness Contact This Carver is enrolled in [place]'s Program of Comprehensive Assistance for Family Caregivers (PCA[facility]). While enrolled in PCA[facility], wellness contacts review the 's well-being, adequacy of personal care services being provided by the Family Caregiver(s), and the well-being of the Family Caregiver(s). Wellness contacts occur at a minimum of once every 120 days, and at least one visit must occur in the eligible Carver's home on an annual basis. Date of Visit: Aug Length of visit: 30 minutes The was identified using the following michaels identifiers: Full Name: YRIS PARKS Date of : [birth year] Full Address: [address] [place] [address] [place], [place] [address] Phone #: Email address: Patient Email - NONE FOUND Is the above contact information in the electronic health record and the Caregiver Support Program IT system, correct? Yes Reason for contact: Routine (120-day contact) Individuals providing input include: Carver Primary Family Caregiver Method of contact: Video Telehealth Contact number for backup/emergency communication: location during visit:* Home [address] [place], [place] [address] confirms location is safe and private for visit. Telehealth Disclosure: Visit conducted by synchronous telehealth. verbal consent obtained. Location/emergency number confirmed. Environment surveyed and all participants identified. Virtual conference room locked. INFORMATION is receiving care from: Primary Family Caregiver Name: Vamsi Doty Have there been any changes to the individuals living in the Carver's household? No Have there been any changes in the 's Advance Directive for Health Care, Guardianship/Conservator, or Fiduciary status? No ASSESSMENT How has your physical/mental/emotional health been lately? Details: tori Randolph. My back hurts all the time. I have a prescription for pain pills but I am not a fan of them. was in and out of the hospital last month for GI issues. He has lost 40lbs int he last several months. Saw GI yesterday and will have EGD and colonoscopy on October 02. Have you experienced any changes (falls, ER visits, hospitalizations) and/or any concerns? Yes Details: ER x3 How are you coping with these changes or concerns? Details: Increase protein shakes to try to keep weight up. Do you have any medication concerns? No Do you have the needed medical equipment to support you in your home? Yes Do you feel that your care needs are being adequately met? Yes Do you have any legal or financial planning concerns? No Do you feel comfortable and safe in your home environment? Yes What goals or needs can we assist you with? Details: None SCREENING TOOLS CAREGIVER INPUT Caregiver's understanding of the 's treatment plan: Details: Over the last few months his biggest challenge has been his stomach and keeping him fed and limiting vomiting. Increasing protein in smoothies to slow weight loss. Are there any supports or services the Caregiver needs to adequately meet the needs of the ? No Support services currently in place include: None [facility] staff provided information on the following resources and supports: - Caregiver Health and Wellbeing Coaching - Caregiver Self-Care Courses - Caregiver Support Line (CSL) Education Calls - Caregiver Webinars/Videos - Respite - Veterans Crisis Line (DIAL 988 then PRESS 1) PLAN: No follow-up needed outside of regularly scheduled [facility] Wellness Contacts SUMMARY OF VISIT: calm and cooperative with assessment, no needs identified. /abigail/ CHAVO PAUL RN MSN Signed: 08/28/2024 12:17 CHAVO PAUL [facility]
--- OUTSIDE RECORDS SUMMARY | 2024-10-02 04:30 | XMS_ITS ---
Author Organization [facility] Address [address] [place] [address] Care Team Providers Care Paper Bag Making Machinist Name Role Phone [facility] Primary Care Provid er Unavailable Mona Burns Unavailable [phone] [place], [place] Unavailable Unavailable Sawyer Benavidez Unavailable [phone] Allergies Allergen (clinical drug ingredient) Drug/Non Drug Allergy documented on EMR Reaction Allergy Type Onset Date Status codeine Codeine Sulfate stomach upset Drug Allergy Active codeine Codeine Vomiting Drug Allergy Active morphine Morphine stomach upset Drug Allergy Act jon REASON FOR VISIT Barretts/Hiatal Hernia/GERD/Screening Colon Medications Medication SIG (Take, Route, Frequency, Duration) Notes Start Date End Date Status traZODone HCl 150 MG Tablet 1 tablet at bedtime Orally Once a day Active Sucralfate 1 GM Tablet 1 tablet on an empty stomach Orally four times a day; Duration: 30 day(s) Active oxyCODONE HCl 5 MG Tablet 1 tablet as needed Orally every 12 hrs; Duration: 30 days As needed Not to exceed 2 per day Fill on 09-12-24 due to shipping times 09/12/2024 10/12/2024 Active Pantoprazole Sodium 40 MG Tablet Delayed Release 1 tablet Orally twice a day 09/16/2019 Active clonazePAM 0.5 MG Tablet 1 tablet at bedtime Orally twice a day Not-Taking Sucralfate *Pick strength-form from [employer] for eRX* Not-Taking Pantoprazole Sodium 40 MG Tablet Delayed Release 1 tablet Orally twice a day; Duration: 30 day(s) Not-Taking Protonix *Pick strength-form from [facility] for eRX* Not-Taking Famotidine 20 MG Tablet 2 tablet at bedtime as needed Orally Once a day Active Ondansetron HCl 8 MG Tablet 1 tablet sublingual as needed Orally every 8 hours as needed. 08/27/2024 Active Lexapro *Pick strength-form from [facility] for eRX* Not-Taking Zoloft 50 MG Tablet 1 tablet Orally Once a day Not-Taking Social History Tobacco Use: Social History Observation Description Date Details (start date - stop date) Current Smoker NA - NA Social History Tobacco Use: Social Info Question Answer Notes xTobacco Use/Smoking Are you a current smoker How often do you smoke cigarettes? every day How many cigarettes a day do you smoke? 11-20 Problems Problem Type SNOMED Code ICD Code Onset Dates Problem Status W/U Status Risk Notes Problem Gastroesophageal reflux disease, unspecified whether esophagitis present (K21.9) Active confirmed Encounters Encounter Location Date Provider Diagnosis [facility] [address] [place] [id number] 10/02/2024 Sawyer Benavidez Screening for colon cancer Z12.11 ; Vidal's esophagus without dysplasia K22.70 and Gastroesophageal reflux disease, unspecified whether esophagitis present K21.9 Assessments Encounter Date Diagnosis (ICD Code) Assessment Notes Treatment Notes Treatment Clinical Notes Section Notes 10/02/2024 Screening for colon cancer (ICD-10 - Z12.11) Average risk screening colonoscopy today. 10/02/2024 Vidal's esophagus without dysplasia (ICD-10 - K22.70) EGD Today 10/02/2024 Gastroesophageal reflux disease, unspecified whether esophagitis present (ICD-10 - K21.9) Diagnostic EGD today Plan Of Treatment Treatment Notes Assessment Notes Screening for colon cancer Average risk screening colonoscopy today. Vidal's esophagus without dysplasia EG D Today Gastroesophageal reflux dise ase, unspecified whether esophagitis present Diagnostic EGD today Next Appt Details Provider Name:Mona hunt, 11/07/2024 01:20:00 PM, [address] [place], [address], History and Physical Notes * HPI (History of Present Illness) Category Sub-Category Detail Notes Category Not es Provider Note Mr. Parks is a 49 year old male here for EGD and screening colonoscopy. History of Vidal's esophagus and chronic GERD with breakthrough symptoms depite PPI and carafate. Last EGD was in 2019. Last colonoscopy was over 10 years ago. Examination Category Sub-Category Detail Notes Category Not es General Examination GENERAL APPEARANCE: alert , pleasant, in no acute distress , alert , pleasant, in no acute distress HEART: Regular rate and rhy thm , Regular rate and rhythm LUNGS: clear to auscultatio n bilaterally , clear to auscultation bilaterally ABDOMEN: bowel sounds present , soft, nontender, nondistended , bowel sounds present, soft, nontender, nondistended Progress Notes * Santos PARKS EDOB: [birth year] (49 yo M)Acc No.[id number]:10/02/2024 History and Physical Patient: Santos Coto Provider: Zach Benavidez MD :1975 A ge:49 Y S ex:Male Date:10/02/2024 Address:[id number] [facility] Check Out:10:13 AM 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 Parks is a 49 year old male here for EGD and screening colonoscopy. History of Vidal's esophagus and chronic GERD with breakthrough symptoms depite PPI and carafate. Last EGD was in 2019. Last colonoscopy was over 10 years ago. * ROS: G eneral - Multi System: Constitutional D enies fever, chills, recent weight loss, Denies fever, chills, recent weight loss. C ardiovascular D enies any recent chest pain, Denies any recent chest pain. R espiratory D enies any shortness of breath, cough, Denies any shortness of breath, cough. G astrointestinal S ee HPI, Denies heartburn, constipation, diarrhea, nausea, vomiting, blood in stools, or abdominal pain. * Medical History: Problem:Anxiety (finding) , Status :: Active Problem:Chronic back pain (disorder) , Status :: Active Problem:Chronic pain syndrome (disorder) , Status :: Active Chicken pox Arthritis Gerd Kidney stones * Surgical History: cholecystectomy back stimulator neck surgery hiatal hernia kidney stone removal tracheotomy Carpal tunnel surgery Kidney stone surgery Knee Surgery Neck surgery A[facility] - [facility] - Dr. Campos Since 2015 Cholecystectomy - [facility] - Dr. Matt Since 2018 Spinal cord stim gen replacement - Dr. Gurrola Since 2019 * Hospitalization/Major Diagno stic Procedure: see surgical hx * Family History: F ather: alive, prostate cancer, diabetes. M other: alive. S iblings: brother: prostate cancer. M igrated Family History: : Cancer. * Social History: T obacco Use: x Tobacco Use/Smoking A re you a c urrent smoker H ow often do you smoke cigarettes? e very day H ow many cigarettes a day do you smoke? 1 03-04 * Medications: T akingFamotidine 20 MG Tablet 2 tablet at bedtime as needed Orally Once a day Ondansetron HCl 8 MG Tablet 1 tablet sublingual as needed Orally every 8 hours as needed. oxyCODONE HCl 5 MG Tablet 1 tablet as needed Orally every 12 hrs As needed Not to exceed 2 per day, stop date 10/12/2024, Notes to Pharmacist: Fill on 09-12-24 due to shipping timesPantoprazole Sodium 40 MG Tablet Delayed Release 1 tablet Orally twice a day Sucralfate 1 GM Tablet 1 tablet on an empty stomach Orally four times a day traZODone HCl 150 MG Tablet 1 tablet at bedtime Orally Once a day Taking Famotidine 20 MG Tablet 2 tablet at bedtime as needed Orally Once a day Taking Ondansetron HCl 8 MG Tablet 1 tablet sublingual as needed Orally every 8 hours as needed. Taking oxyCODONE HCl 5 MG Tablet 1 tablet as needed Orally every 12 hrs As needed Not to exceed 2 per day, stop date 10/12/2024, Notes to Pharmacist: Fill on 09-12-24 due to shipping timesTaking Pantoprazole Sodium 40 MG Tablet Delayed Release 1 tablet Orally twice a day Taking Sucralfate 1 GM Tablet 1 tablet on an empty stomach Orally four times a day Taking traZODone HCl 150 MG Tablet 1 tablet at bedtime Orally Once a day Not-TakingclonazePAM 0.5 MG Tablet 1 tablet at bedtime Orally twice a day Zoloft 50 MG Tablet 1 tablet Orally Once a day Lexapro , Notes to Pharmacist: *Pick strength-form from [employer] for eRX*Pantoprazole Sodium 40 MG Tablet Delayed Release 1 tablet Orally twice a day Protonix , Notes to Pharmacist: *[facility]*Sucralfate , Notes to Pharmacist: *[facility]*Not-Taking clonazePAM 0.5 MG Tablet 1 tablet at bedtime Orally twice a day Not-Taking Zoloft 50 MG Tablet 1 tablet Orally Once a day Not-Taking Lexapro , Notes to Pharmacist: *[facility]*Not-Taking Pantoprazole Sodium 40 MG Tablet Delayed Release 1 tablet Orally twice a day Not-Taking Protonix , Notes to Pharmacist: *[facility]*Not-Taking Sucralfate , Notes to Pharmacist: *[facility]* * Allergies: C odeine: Vomiting - AllergyCodeine Sulfate: stomach upset - Allergy - Criticality HighMorphine: stomach upset - Allergy - Criticality High Objective: * Examination: G eneral Examination: GENERAL APPEARANCE: a lert , pleasant, in no acute distress , alert , pleasant, in no acute distress. HEART: R egular rate and rhythm , Regular rate and rhythm.? LUNGS: c lear to auscultation bilaterally , clear to auscultation bilaterally. ABDOMEN: b owel sounds present, soft, nontender, nondistended , bowel sounds present, soft, nontender, nondistended. Assessment: * Assessment: 1. S creening for colon cancer - Z12.11 (Primary) 2 . B arrett's esophagus without dysplasia - K22.70 3 . G astroesophageal reflux disease, unspecified whether esophagitis present - K21.9 Plan: * Treatment: 2. B arrett's esophagus without dysplasia Notes: EGD Today 3. G astroesophageal reflux disease, unspecified whether esophagitis present Notes: Diagnostic EGD today Billing Information: * Procedure Codes: * Electronic signature of Simon Benavidez MD on 10/04/2024 at 09:06 AM CDT Sign off status: Pending * Provider: Zach Benavidez MD Date: 0 10/02/2024 Generated for Hollie francois/Britney/eTransmitting on: 0 10/04/2024 09:06 AM CDT
--- OUTSIDE RECORDS SUMMARY | 2024-10-02 10:30 | XMS_ITS | Continuity of Care Document ---
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 Role Phone Emelina Amrita Cervantes Primary Care Physician [facility] Financial Number [id number] Date(s): 10/02/24 - 10/02/[address] [address]- [place] Discharge Disposition: Home:Self-Care Attending Physician: Sawyer Benavidez MD Admitting Physician: Sawyer Benavidez MD Encounter Type: ENDO Allergies, Adverse Reactions, Alerts Substance Criticality Severity Reaction Reaction Severity Status codeine N&V - Nausea an d vomiting Active morphine High criticality Severe N&V - Nause a and vomiting Active Functional Status 09/30/24 Living situation Lives w/ spouse Preferred Communication Mode Verbal Preferred Language Lao Assistive Device Cane Personal Devices Dentures, lower, Dentures, upper, Glasses Medications Carafate 1 g oral tablet 1 GM, = 1 TAB, PO, ACHS, # 120 TAB, Pharmacy: [id number], Tab, 187, cm, 07/01/24 14:22:00 CDT, Height CM, 85.8, KG, 07/01/24 14:22:00 CDT, Weight KG Start Date: 07/01/24 Status: Ordered Quantity: 120.0 Unit: TAB Repeat number: 1 oxyCODONE 5 mg oral tablet 5 MG, = 1 TAB, PO, Q6H, PRN for Pain, 0 Refill(s), Tab Start Date: 01/13/23 Status: Ordered Repeat number: 1 Pepcid 20 mg oral tablet 20 MG, = 1 TAB, PO, BID, # 60 TAB, Pharmacy: [facility] #[id number], Tab, 187, cm, 07/01/24 14:22:00 CDT, Height CM, 85.8, KG, 07/01/24 14:22:00 CDT, Weight KG Start Date: 07/01/24 Status: Ordered Quantity: 60.0 Unit: TAB Repeat number: 1 traZODone 150 mg oral tablet 150 MG, = 1 TAB, PO, QHS, # 30 TAB, Tab Start Date: 01/13/23 Status: Ordered Quantity: 30.0 Unit: TAB Repeat number: 1 Problem List Condition Confirmation Course Effective Dates Status Health St atus Informant Anxiety Confirmed Active patient Babesiosis Confirmed 05/2020 Active patient Chronic back pain Confirmed Active mayela ent Chronic pain syndrome Confirmed Active patient Decreased heart rate 1 Confirmed Active patient Depression Confirmed Active patient GERD - Gastro-esophageal reflux disease Confirmed Active patient Hiatal hernia Confirmed Active patient Hypotension Confirmed Active patient Tobacco dependence Confirmed Active 1after surgery Procedures Procedure Date Related Diagnosis Body Site Status Colonoscopy 10/02/24 Completed EGD - esophagogastroduodenoscopy 10/02/24 Completed Osteotomy 1 06/24/21 Completed Implantation of electronic s timulator of spine 2 11/05/20 Completed Esophagogastroduodenoscopy 07/29/19 Completed Implantation of electronic s timulator of spine 3 07/19/18 Completed Status post insertion of spi nal cord stimulator 01/31/17 Completed Blood transfusion Complet ed Bone graft 4 Completed Carpal tunnel release Com pleted Cholecystectomy Completed Kidney stone analysis 5 C ompleted ORIF - Open reduction and in ternal fixation of fracture 6 Completed ORIF - Open reduction and in ternal fixation of fracture 7 Completed Trachelectomy 8 Completed 1peroneal tendon repair, left foot medial calcaneal slide osteotomy 2Generator replacement 3REVISION 4doner bone graft cervical region 5removal of kidney stone 6removal of screws right knee 7right knee screws 8drain right cheek Vital Signs Most recent to oldest [Reference Range]: 1 2 3 BSA Patient Care 2.1526 SQ M (09/30/24 1:23 PM) Height CM 185.4 cm (09/30/24 1:23 PM) Weight KG 89.2 KG (09/30/24 1:23 PM) Type of Scale Platform Scale (09/30/24 1:23 PM) Body Mass Index Measured 26 KG/M2 (09/30/24 1:23 PM) Blood Pressure [90-140/60-90 MMHG] 109/80MMHG (10/02/24 10:05 AM) 111/79MMHG (10/02/24 10:00 AM) 112/87MMHG (10/02/24 9:56 AM) Mean Arterial Pressure, Cuff 90 MMHG (10/02/24 10:03 AM) 90 MMHG (10/02/24 10:00 AM) 95 MMHG (10/02/24 9:54 AM) Temperature temporal [96-100.9 DEGF] 97.2 DEGF (10/02/24 8:00 AM) Peripheral Pulse [60-100 BPM] 74 BPM (10/02/24 8:00 AM) Heart Rate Monitored [60-100 BPM] 57 BPM *LOW* (10/02/24 10:05 AM) 63 BPM (10/02/24 10:01 AM) 68 BPM (10/02/24 9:59 AM) Respiratory Rate [14-20 BR/MIN] 20 BR/MIN (10/02/24 10:05 AM) 22 BR/MIN *HI* (10/02/24 10:01 AM) 13 BR/MIN *LOW* (10/02/24 9:59 AM) SpO2 [94-100 %] 96 % (10/02/24 10:05 AM) 95 % (10/02/24 10:01 AM) 94 % (10/02/24 9:58 AM) Oxygen Therapy Room air (10/02/24 9:54 AM) Room air (10/02/24 8:00 AM) Social History Social History Type Response Smoking Status Current every day us er; Type: Cigarettes; Pack use per day: 0.50; entered on: 09/30/24 Sex Male Sex Representation Male (finding) Implantable Device List Procedure Provider Procedure Date Device Type Site Unknown Unknown 06/24/21 Unknown Unknown Device Identifier Serial Number Lot or Batch Number Manufacturing Date Expiration Date Distinct Identification Code MRI Safety Implantable Status Assigning Authority Unknown Unknown Unknown Unknown 09/22/21 Unknown Unknown Active Unk nown Unknown Unknown [id number] 61-806 Unknown 09/15/24 Unknown Unknown Active Unknown Unknown Unknown [id number] Unknown 03/19/26 Unknown Unknown Active Unknown Unknown Unknown [id number] Unknown 03/15/26 Unknown Unknown Active Unknown Unknown Unknown Unknown Unknown 09/22/21 Unknown Unknown Active Unk nown Procedure Provider Procedure Date Device Type Site Unknown Unknown 11/05/20 Unknown Unknown Device Identifier Serial Number Lot or Batch Number Manufacturing Date Expiration Date Distinct Identification Code MRI Safety Implantable Status Assigning Authority Unknown Unknown [id number] Unknown 09/03/22 Unknown Unknown Active Unk nown Unknown Unknown [id number] Unknown 08/27/22 Unknown Unknown Active Unk nown Unknown Unknown [id number] Unknown 09/20/22 Unknown Unknown Active Unkno wn Procedure Provider Procedure Date Device Type Site Unknown Unknown 07/19/18 Unknown Unknown Device Identifier Serial Number Lot or Batch Number Manufacturing Date Expiration Date Distinct Identification Code MRI Safety Implantable Status Assigning Authority Unknown XSI817. 1 Unknown Unknown 06/20/20 Unknown Unknown Active Unknown Procedure Provider Procedure Date Device Type Site Unknown Unknown 01/31/17 Unknown Unknown Device Identifier Serial Number Lot or Batch Number Manufacturing Date Expiration Date Distinct Identification Code MRI Safety Implantable Status Assigning Authority Unknown [id number] 2 Unknown Unknown 10/28/18 Unknown Unknown Active Unknown Unknown [id number] 2 Unknown Unknown 12/15/18 Unknown Unknown Active Unknown Unknown Unknown [id number] Unknown 06/12/18 Unknown Unknown Active [facility] own [facility] Discharge Instructions Follow Up Care 09/26/2024 03:37:25 With:Sawyer Benavidez Address: [facility] [address] [place] [address]- Business (1) When: Unknown Comments:-IF YOU HAVE ANY CONCERNS CALL 24 HOUR ON-CALL RN @ [phone].-FOLLOW AN ANTIREFLUX REGIMEN-FOLLOW AN ANTIREFLUX DIET-FOLLOW A HIGH FIBER DIET-TAKE 15 GRAM FIBER SUPPLEMENT DAILY-AWAIT PATHOLOGY RESULTS. With:Amrita Tarango Address: [address] [address]- Business (1) When: Unknown Patient Care team information Care Team Personnel Name: Emelina PETERSEN, Amrita Cervantes Member Role: Primary Care Physician Address: [address] [address]- Telecom: Care Team Related Persons Name: VAMSI PARKS Name: VAMSI PARKS Insurance Providers Guarantor name: YRIS RAMOS DELBARTON Health Plan Information #: 1 Payer: [employer] Member Number: [id number] Policy Number: NA Group Number: NA Payer Identifier: NA Health Plan Information #: 2 Payer: [employer] Member Number: [id number] Policy Number: NA Group Number: NA Payer Identifier: NA
--- NOTE | 2024-10-04 08:59 | XRR_ITS ---
PROCEDURE INFORMATION: Exam: XR Chest Exam date and time: 10/04/2024 9:08 AM Age: 49 years old Clinical indication: Angina pectoris; Chest/epigastric pain; Egd x 2 days ago; Additional info: Chest pain TECHNIQUE: Imaging protocol: Radiologic exam of the chest. Views: 1 view. COMPARISON: CT chest abdpel w/*[id number] 06/27/2024 5:12 PM FINDINGS: Lungs: No consolidation. Pleural spaces: No sizable pleural effusion or pneumothorax. Heart/Mediastinum: No cardiomegaly. Bones/joints: Unremarkable. XR/XR chest 1V portable [id number] IMPRESSION: No acute intrathoracic findings.
--- NOTE | 2024-10-04 09:00 | ECG_ITS ---
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 Measurements Intervals [place] Rate: 50 P: 1 NE: 130 QRS: 42 QRSD: 122 T: 59 QT: 448 QTc: 412 Interpretive Statements SINUS BRADYCARDIA POSSIBLE LATERAL MYOCARDIAL INFARCTION , PROBABLY OLD [30 ms Q WAVE IN I/aVL/V5/V6] Compared to ECG 06/27/2024 18:31:49 Myocardial infarct finding now present Electronically Signed On 10-04-2024 14:06:22 CDT by Jcarlos Johnson M.D. [email or web address]
[2024-10-04 09:04] VITALS: BP 154/82; PULSE 54; RESP 20; TEMP 36.6; O2SAT 98; BMI 26.4
--- OUTSIDE RECORDS SUMMARY | 2024-10-04 09:04 | XMS_ITS | Continuity of Care Document ---
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 [facility] URINALYSIS (STL-PB) PROTEIN [MASS/VOLUM E] IN URINE BY TEST STRIP NEGATIVEm g/dL 07/16 Specimen Type: URINE No comment entered. Ordering Provider: Wilbur SANTOS Report Released Date/Time : Jul 16, 2024 01:53 PM Reporting Lab: [place] [facility] [address] [place] [address] 8 Performin g Lab: [place] [facility] [address] [place] [address] 8 [facility] URINALYSIS (STL-PB) URN.UROBILI NOGEN NORMALmg/ dL 07/16 Specimen Type: URINE No comment entered. Ordering Provider: Wilbur SANTOS Report Released Date/Time : Jul 16, 2024 01:53 PM Reporting Lab: [place] [facility] [address] [place] [address] 8 Performin g Lab: [place] [facility] [address] [place] [address] 8 [facility] URINALYSIS (STL-PB) HEMOGLOBIN [MASS/VOLUM E] IN URINE BY TEST STRIP NEGATIVEm g/dL 07/16 Specimen Type: URINE No comment entered. Ordering Provider: Wilbur SANTOS Report Released Date/Time : Jul 16, 2024 01:53 PM Reporting Lab: [place] [facility] [address] [place] [address] 8 Performin g Lab: [place] [facility] [address] [place] [address] 8 [facility] URINALYSIS (STL-PB) KETONES [MASS/VOLUM E] IN URINE BY TEST STRIP NEGATIVEm g/dL 07/16 Specimen Type: URINE No comment entered. Ordering Provider: Wilbur SANTOS Report Released Date/Time : Jul 16, 2024 01:53 PM Reporting Lab: [place] [facility] [address] [place] [address] 8 Performin g Lab: [place] [facility] [address] [place] [address] 8 [facility] URINALYSIS (STL-PB) URN.LEUK.ES T. NEGATIVE 07/16 Specimen Type: URINE No comment entered. Ordering Provider: Wilbur SANTOS Report Released Date/Time : Jul 16, 2024 01:53 PM Reporting Lab: [place] [facility] [address] [place] [address] 8 Performin g Lab: [place] [facility] [address] [place] [address] 8 [facility] URINALYSIS (STL-PB) SPECIFIC GRAVITY OF URINE 1.027 1.005 - 1.029 07/16 Specimen Type: URINE No comment entered. Ordering Provider: Wilbur SANTOS Report Released Date/Time : Jul 16, 2024 01:53 PM Reporting Lab: [place] [facility] [address] [place] [address] 8 Performin g Lab: [place] [facility] [address] [place] [address] 8 [facility] CBC LEUKOCYTES [#/VOLUME] IN BLOOD BY AUTOMATED COUNT 7.7 10*3/uL 3.6 - 11.2 07/16 Specimen Type: BLOOD No comment entered. Ordering Provider: Wilbur SANTOS Report Released Date/Time : Jul 16, 2024 01:53 PM Reporting Lab: [place] [facility] [address] [place] [address] 8 Performin g Lab: [place] [facility] [address] [place] [address] 8 [facility] CBC ERYTHROCYTE S [#/VOLUME] IN BLOOD BY AUTOMATED COUNT 4.47 10*6/uL 4.10 - 5.70 07/16 Specimen Type: BLOOD No comment entered. Ordering Provider: Wilbur SANTOS Report Released Date/Time : Jul 16, 2024 01:53 PM Reporting Lab: [place] [facility] [address] [place] [address] 8 Performin g Lab: [place] [facility] [address] [place] [address] 8 [facility] CBC HEMOGLOBIN [MASS/VOLUM E] IN BLOOD 14.2 g/dL 13.1 - 16.8 07/16 Specimen Type: BLOOD No comment entered. Ordering Provider: Wilbur SANTOS Report Released Date/Time : Jul 16, 2024 01:53 PM Reporting Lab: [place] [facility] [address] [place] [address] 8 Performin g Lab: [place] [facility] [address] [place] [address] 8 [facility] CBC HEMATOCRIT [VOLUME FRACTION] OF BLOOD 40.1 38.2 - 48.4 07/16 Specimen Type: BLOOD No comment entered. Ordering Provider: Wilbur SANTOS Report Released Date/Time : Jul 16, 2024 01:53 PM Reporting Lab: [place] [facility] [address] [place] [address] 8 Performin g Lab: [place] [facility] [address] [place] [address] 8 [facility] CBC MCV [ENTITIC VOLUME] BY AUTOMATED COUNT 89.7 fL 80.0 - 100.0 07/16 Specimen Type: BLOOD No comment entered. Ordering Provider: Wilbur SANTOS R Report Released Date/Time : Jul 16, 2024 01:53 PM Reporting Lab: [place] [facility] [address] [place] [address] 8 Performin g Lab: [place] [facility] [address] [place] [address] 8 [facility] CBC MCH [ENTITIC MASS] BY AUTOMATED COUNT 31.8 pg 27.0 - 34.0 07/16 Specimen Type: BLOOD No comment entered. Ordering Provider: Wilbur SANTOS R Report Released Date/Time : Jul 16, 2024 01:53 PM Reporting Lab: [place] [facility] [address] [place] [address] 8 Performin g Lab: [place] [facility] [address] [place] [address] 8 [facility] CBC MCHC [MASS/VOLUM E] BY AUTOMATED COUNT 35.4 g/dL 33.0 - 36.0 07/16 Specimen Type: BLOOD No comment entered. Ordering Provider: Wilbur SANTOS R Report Released Date/Time : Jul 16, 2024 01:53 PM Reporting Lab: [place] [facility] [address] [place] [address] 8 Performin g Lab: [place] [facility] [address] [place] [address] 8 [facility] CBC PLATELETS [#/VOLUME] IN BLOOD BY AUTOMATED COUNT 364 10*3/uL 150 - 400 07/16 Specimen Type: BLOOD No comment entered. Ordering Provider: Wilbur SANTOS Report Released Date/Time : Jul 16, 2024 01:53 PM Reporting Lab: [place] [facility] [address] [place] [address] 8 Performin g Lab: [place] [facility] [address] [place] [address] 8 [facility] CBC PLATELET MEAN VOLUME [ENTITIC VOLUME] IN BLOOD BY AUTOMATED COUNT 9.5 fL 7.5 - 11.2 07/16 Specimen Type: BLOOD No comment entered. Ordering Provider: Wilbur SANTOS R Report Released Date/Time : Jul 16, 2024 01:53 PM Reporting Lab: [place] [facility] [address] [place] [address] 8 Performin g Lab: [place] [facility] [address] [place] [address] 8 [facility] CBC ERYTHROCYTE DISTRIBUTIO N WIDTH [RATIO] BY AUTOMATED COUNT 12.4 11.8 - 15.1 07/16 Specimen Type: BLOOD No comment entered. Ordering Provider: Wilbur SANTOS R Report Released Date/Time : Jul 16, 2024 01:53 PM Reporting Lab: [place] [facility] [address] [place] [address] 8 Performin g Lab: [place] [facility] [address] [place] [address] 8 [facility] CBC LYMPHOCYTES /100 LEUKOCYTES IN BLOOD BY AUTOMATED COUNT 42.8 07/16 Specimen Type: BLOOD No comment entered. Ordering Provider: Wilbur SANTOS R Report Released Date/Time : Jul 16, 2024 01:53 PM Reporting Lab: [place] [facility] [address] [place] [address] 8 Performin g Lab: [place] [facility] [address] [place] [address] 8 [facility] CBC MONOCYTES/1 00 LEUKOCYTES IN BLOOD BY AUTOMATED COUNT 7.0 07/16 Specimen Type: BLOOD No comment entered. Ordering Provider: Wilbur SANTOS Report Released Date/Time : Jul 16, 2024 01:53 PM Reporting Lab: [place] [facility] [address] [place] [address] 8 Performin g Lab: [place] [facility] [address] [place] [address] 8 [facility] CBC NEUTROPHILS /100 LEUKOCYTES IN BLOOD BY AUTOMATED COUNT 48.3 07/16 Specimen Type: BLOOD No comment entered. Ordering Provider: Wilbur SANTOS Report Released Date/Time : Jul 16, 2024 01:53 PM Reporting Lab: [place] [facility] [address] [place] [address] 8 Performin g Lab: [place] [facility] [address] [place] [address] 8 [facility] CBC EOSINOPHILS /100 LEUKOCYTES IN BLOOD BY AUTOMATED COUNT 0.8 07/16 Specimen Type: BLOOD No comment entered. Ordering Provider: Wilbur SANTOS R Report Released Date/Time : Jul 16, 2024 01:53 PM Reporting Lab: [place] [facility] [address] [place] [address] 8 Performin g Lab: [place] [facility] [address] [place] [address] 8 [facility] CBC BASOPHILS/1 00 LEUKOCYTES IN BLOOD BY AUTOMATED COUNT 0.8 07/16 Specimen Type: BLOOD No comment entered. Ordering Provider: Wilbur SANTOS R Report Released Date/Time : Jul 16, 2024 01:53 PM Reporting Lab: [place] [facility] [address] [place] [address] 8 Performin g Lab: [place] [facility] [address] [place] [address] 8 [facility] CBC LYMPHOCYTES [#/VOLUME] IN BLOOD BY AUTOMATED COUNT 3.29 10*3/uL 0.77 - 4.50 07/16 Specimen Type: BLOOD No comment entered. Ordering Provider: Wilbur SANTOS Report Released Date/Time : Jul 16, 2024 01:53 PM Reporting Lab: [place] [facility] [address] [place] [address] 8 Performin g Lab: [place] [facility] [address] [place] [address] 8 [facility] CBC MONOCYTES [#/VOLUME] IN BLOOD BY AUTOMATED COUNT 0.54 10*3/uL 0.19 - 0.8 07/16 Specimen Type: BLOOD No comment entered. Ordering Provider: Wilbur SANTOS R Report Released Date/Time : Jul 16, 2024 01:53 PM Reporting Lab: [place] [facility] [address] [place] [address] 8 Performin g Lab: [place] [facility] [address] [place] [address] 8 [facility] CBC NEUTROPHILS [#/VOLUME] IN BLOOD BY AUTOMATED COUNT 3.72 10*3/uL 2.10 - 8.00 07/16 Specimen Type: BLOOD No comment entered. Ordering Provider: Wilbur SANTOS R Report Released Date/Time : Jul 16, 2024 01:53 PM Reporting Lab: [place] [facility] [address] [place] [address] 8 Performin g Lab: [place] [facility] [address] [place] [address] 8 [facility] CBC EOSINOPHILS [#/VOLUME] IN BLOOD BY AUTOMATED COUNT 0.06 10*3/uL 0.00 - 0.60 07/16 Specimen Type: BLOOD No comment entered. Ordering Provider: Wilbur SANTOS R Report Released Date/Time : Jul 16, 2024 01:53 PM Reporting Lab: [place] [facility] [address] [place] [address] 8 Performin g Lab: [place] [facility] [address] [place] [address] 8 [facility] CBC BASOPHILS [#/VOLUME] IN BLOOD BY AUTOMATED COUNT 0.06 10*3/uL 0.00 - 0.20 07/16 Specimen Type: BLOOD No comment entered. Ordering Provider: Wilbur SANTOS Report Released Date/Time : Jul 16, 2024 01:53 PM Reporting Lab: [place] [facility] [address] [place] [address] 8 Performin g Lab: [place] [facility] [address] [place] [address] 8 [facility] CBC IMMATURE GRANULOCYTE S/100 LEUKOCYTES IN BLOOD BY AUTOMATED COUNT 0.3 07/16 Specimen Type: BLOOD No comment entered. Ordering Provider: Wilbur SANTOS Report Released Date/Time : Jul 16, 2024 01:53 PM Reporting Lab: [place] [facility] [address] [place] [address] 8 Performin g Lab: [place] [facility] [address] [place] [address] 8 [facility] CBC IMMATURE GRANULOCYTE S [#/VOLUME] IN BLOOD BY AUTOMATED COUNT 0.02 10*3/uL 0.00 - 0.05 07/16 Specimen Type: BLOOD No comment entered. Ordering Provider: Wilbur SANTOS Report Released Date/Time : Jul 16, 2024 01:53 PM Reporting Lab: [place] [facility] [address] [place] [address] 8 Performin g Lab: [place] [facility] [address] [place] [address] 8 [facility] COMPREHENS JOHANA METABOLIC PANEL CREATININE [MASS/VOLUM E] IN SERUM OR PLASMA 0.84 mg/dL 0.7 - 1.3 07/16 Specimen Type: PLASMA No comment entered. Ordering Provider: SANTOS,C ATHERINE R Report Released Date/Time : Jul 16, 2024 01:53 PM Reporting Lab: [place] [facility] [address] [place] [address] 8 Performin g Lab: [place] [facility] [address] [place] [address] 8 [facility] COMPREHENS JOHANA METABOLIC PANEL UREA NITROGEN [MASS/VOLUM E] IN SERUM OR PLASMA 17 mg/dL 9 - 25 07/16 Specimen Type: PLASMA No comment entered. Ordering Provider: Wilbur SANTOS R Report Released Date/Time : Jul 16, 2024 01:53 PM Reporting Lab: [place] [facility] [address] [place] [address] 8 Performin g Lab: [place] [facility] [address] [place] [address] 8 [facility] COMPREHENS JOHANA METABOLIC PANEL GLUCOSE [MASS/VOLUM E] IN SERUM OR PLASMA 105 mg/dL 72 - 99 07/16 H Specimen Type: PLASMA No comment entered. Ordering Provider: Wilbur SANTOS R Report Released Date/Time : Jul 16, 2024 01:53 PM Reporting Lab: [place] [facility] [address] [place] [address] 8 Performin g Lab: [place] [facility] [address] [place] [address] 8 [facility] COMPREHENS JOHANA METABOLIC PANEL SODIUM [MOLES/VOLU ME] IN SERUM OR PLASMA 139 meq/L 136 - 145 07/16 Specimen Type: PLASMA No comment entered. Ordering Provider: Wilbur SANTOS R Report Released Date/Time : Jul 16, 2024 01:53 PM Reporting Lab: [place] [facility] [address] [place] [address] 8 Performin g Lab: [place] [facility] [address] [place] [address] 8 [facility] COMPREHENS JOHANA METABOLIC PANEL POTASSIUM [MOLES/VOLU ME] IN SERUM OR PLASMA 4.5 meq/L 3.5 - 5 07/16 Specimen Type: PLASMA No comment entered. Ordering Provider: SANTOS,C ATHERINE R Report Released Date/Time : Jul 16, 2024 01:53 PM Reporting Lab: [place] [facility] [address] [place] [address] 8 Performin g Lab: [place] [facility] [address] [place] [address] 8 [facility] COMPREHENS JOHANA METABOLIC PANEL CHLORIDE [MOLES/VOLU ME] IN SERUM OR PLASMA 105 meq/L 98 - 107 07/16 Specimen Type: PLASMA No comment entered. Ordering Provider: Wilbur SANTOS R Report Released Date/Time : Jul 16, 2024 01:53 PM Reporting Lab: [place] [facility] [address] [place] [address] 8 Performin g Lab: [place] [facility] [address] [place] [address] 8 [facility] COMPREHENS JOHANA METABOLIC PANEL CARBON DIOXIDE, TOTAL [MOLES/VOLU ME] IN SERUM OR PLASMA 27 meq/L 22 - 31 07/16 Specimen Type: PLASMA No comment entered. Ordering Provider: Wilbur SANTOS R Report Released Date/Time : Jul 16, 2024 01:53 PM Reporting Lab: [place] [facility] [address] [place] [address] 8 Performin g Lab: [place] [facility] [address] [place] [address] 8 [facility] COMPREHENS JOHANA METABOLIC PANEL CALCIUM [MASS/VOLUM E] IN SERUM OR PLASMA 9.0 mg/dL 8.4 - 10.4 07/16 Specimen Type: PLASMA No comment entered. Ordering Provider: Wilbur SANTOS R Report Released Date/Time : Jul 16, 2024 01:53 PM Reporting Lab: [place] [facility] [address] [place] [address] 8 Performin g Lab: [place] [facility] [address] [place] [address] 8 [facility] COMPREHENS JOHANA METABOLIC PANEL PROTEIN [MASS/VOLUM E] IN SERUM OR PLASMA 6.9 g/dL 6 - 8.6 07/16 Specimen Type: PLASMA No comment entered. Ordering Provider: Wilbur SANTOS R Report Released Date/Time : Jul 16, 2024 01:53 PM Reporting Lab: [place] [facility] [address] [place] [address] 8 Performin g Lab: [place] [facility] [address] [place] [address] 8 [facility] COMPREHENS JOHANA METABOLIC PANEL ALBUMIN [MASS/VOLUM E] IN SERUM OR PLASMA 4.4 g/dL 3.4 - 5 07/16 Specimen Type: PLASMA No comment entered. Ordering Provider: Wilbur SANTOS R Report Released Date/Time : Jul 16, 2024 01:53 PM Reporting Lab: [place] [facility] [address] [place] [address] 8 Performin g Lab: [place] [facility] [address] [place] [address] 8 [facility] COMPREHENS JOHANA METABOLIC PANEL BILIRUBIN.T OTAL [MASS/VOLUM E] IN SERUM OR PLASMA 0.5 mg/dL 0.2 - 1.2 07/16 Specimen Type: PLASMA No comment entered. Ordering Provider: Wilbur SANTOS R Report Released Date/Time : Jul 16, 2024 01:53 PM Reporting Lab: [place] [facility] [address] [place] [address] Performin g Lab: [place] [facility] [address] [place] [address] [facility] COMPREHENS JOHANA METABOLIC PANEL ALKALINE PHOSPHATASE [ENZYMATIC ACTIVITY/VO LUME] IN SERUM OR PLASMA 48 U/L 40 - 150 07/16 Specimen Type: PLASMA No comment entered. Ordering Provider: Wilbur SANTOS R Report Released Date/Time : Jul 16, 2024 01:53 PM Reporting Lab: [place] [facility] [address] [place] [address] Performin g Lab: [place] [facility] [address] [place] [address] [facility] COMPREHENS JOHANA METABOLIC PANEL ASPARTATE AMINOTRANSF ERASE [ENZYMATIC ACTIVITY/VO LUME] IN SERUM OR PLASMA 16 U/L 5 - 34 07/16 Specimen Type: PLASMA No comment entered. Ordering Provider: Wilbur SANTOS R Report Released Date/Time : Jul 16, 2024 01:53 PM Reporting Lab: [place] [facility] [address] [place] [address] Performin g Lab: [place] [facility] [address] [place] [address] [facility] COMPREHENS JOHANA METABOLIC PANEL ALANINE AMINOTRANSF ERASE [ENZYMATIC ACTIVITY/VO LUME] IN SERUM OR PLASMA 10 U/L 8 - 40 07/16 Specimen Type: PLASMA No comment entered. Ordering Provider: Wilbur SANTOS Report Released Date/Time : Jul 16, 2024 01:53 PM Reporting Lab: [place] [facility] [address] [place] [address] Performin g Lab: [place] [facility] [address] [place] [address] [facility] COMPREHENS JOHANA METABOLIC PANEL GLOMERULAR FILTRATION RATE/1.73 SQ M.PREDICTED [VOLUME RATE/AREA] IN SERUM, PLASMA OR BLOOD BY CREATININE- BASED FORMULA (CKD-EPI 2020) 106 07/16 Specimen Type: PLASMA No comment entered. Ordering Provider: Wilbur SANTOS Report Released Date/Time : Jul 16, 2024 01:53 PM Reporting Lab: [place] [facility] [address] [place] [address] Performin g Lab: [place] [facility] [address] [place] [address] [facility] HGA1C HEMOGLOBIN A1C/HEMOGLO BIN.TOTAL IN BLOOD 5.8 4.0 - 6.0 07/16 Specimen Type: BLOOD No comment entered. Ordering Provider: Wilbur SANTOS Report Released Date/Time : July 14, 2023 04:21 PM Reporting Lab: [place] [facility] [address] [place] [address] Performin g Lab: [place] [facility] [address] [place] [address] [place] [facility] CHOLESTERO L PANEL (PB) CHOLESTEROL [MASS/VOLUM E] IN SERUM OR PLASMA 241 mg/dL 0 - 200 07/16 H Specimen Type: PLASMA No comment entered. Ordering Provider: Wilbur SANTOS Report Released Date/Time : July 14, 2023 04:21 PM Reporting Lab: [place] [facility] [address] [place] [address] Performin g Lab: [place] [facility] [address] [place] [address] [place] [facility] CHOLESTERO L PANEL (PB) TRIGLYCERID E [MASS/VOLUM E] IN SERUM OR PLASMA 168 mg/dL 0 - 150 07/16 H Specimen Type: PLASMA No comment entered. Ordering Provider: Wilbur SANTOS Report Released Date/Time : July 14, 2023 04:21 PM Reporting Lab: [place] [facility] [address] [place] [address] Performin g Lab: [place] [facility] [address] [place] [address] [place] [facility] CHOLESTERO L PANEL (PB) CHOLESTEROL IN LDL [MASS/VOLUM E] IN SERUM OR PLASMA BY CALCULATION 177.0 mg/dL 07/16 Specimen Type: PLASMA No comment entered. Ordering Provider: Wilbur SANTOS Report Released Date/Time : July 14, 2023 04:21 PM Reporting Lab: [place] [facility] [address] [place] [address] Performin g Lab: [place] [facility] [address] [place] [address] [place] [facility] CHOLESTERO L PANEL (PB) CHOLESTEROL IN HDL [MASS/VOLUM E] IN SERUM OR PLASMA 30.4 mg/dL 40 07/16 L Specimen Type: PLASMA No comment entered. Ordering Provider: Wilbur SANTOS Report Released Date/Time : July 14, 2023 04:21 PM Reporting Lab: [place] [facility] [address] [place] [address] Performin g Lab: [place] [facility] [address] [place] [address] [place] [facility] CHOLESTERO L PANEL (PB) CHOLESTEROL IN HDL/CHOLEST CORAL.TOTAL [MASS RATIO] IN SERUM OR PLASMA 12.6 25 07/16 Specimen Type: PLASMA No comment entered. Ordering Provider: Wilbur SANTOS Report Released Date/Time : July 14, 2023 04:21 PM Reporting Lab: [place] [facility] [address] [place] [address] Performin g Lab: [place] [facility] [address] [place] [address] [place] [facility] Vital Signs Combined list of inpatient and outpatient Vital Signs from Department of Defense and Veterans Affairs, ranging from 12 months to all on record, depending upon the facility. Vital Sign Value Date Comments Source SYSTOLIC BLOOD PRESSURE 100 07/16/2024 13:40:00 [place] [facility] DIASTOLIC BLOOD PRESSURE 69 07/16/2024 13:40:00 [facility] PULSE OXIMETRY 97 07/16/2024 13:40:00 [facility] WEIGHT 193.7 07/16/2024 13:40:00 [facility] BMI 26 kg/m2 07/16/2024 13:40:00 [facility] PAIN 6 07/16/2024 13:40:00 [facility] HEIGHT 73.0 07/16/2024 13:40:00 [facility] TEMPERATURE 97.7 07/16/2024 13:40:00 [facility] PULSE 94 07/16/2024 13:40:00 [facility] RESPIRATION 16 07/16/2024 13:40:00 [facility] Encounters Combined list of: 1) Encounters from Department of Veterans Affairs facilities going backup to the last 18 months, not all [place] inpatient encounters are included; 2) Encounters from the Department of [facility] facilities going backup to 280 months. Location Location Details Encounter Type Encounter Number Reason For Visit Attending Provider ADM Date DC Date Status Disposition Source [place] [facility] [place] OUTPATIENT [id number] YODIT WETZEL 07/19 Released w/o Limitations [place] [id number] IMM DAVON OAKES A 07/20 [place] Limitations [place] OUTPATIENT [id number] HEP-B MATTY KISER S 09/02 Released w/o Limitations [place] OUTPATIENT [id number] sagar knee pain. CLAY CORTEZ Y 09/04 Released w/o Limitations [facility] [place] [place] [employer] OUTPATIENT [id number] Rash on both arms and left leg HEENA SAMS 11/23 Released w/o Limitations [facility] [employer] OUTPATIENT [id number] R SHOULDE R INJ/ POPPING ? SUSAN ESPINAL 12/06 Released with Work/Duty Limitations [place] OUTPATIENT [id number] F/U ON X-RAYS SUSAN ESPINAL 12/07 Released with Work/Duty Limitations [place]) [place] [id number] R Shldr Pain, [facility] HEENA TINAJERO 12/12 [facility]ased with [facility]/Duty Limitations [facility] [place] [facility] [place] [facility] [employer]) OUTPATIENT [id number] FABIO LUNA 03/28 Released w/o Limitations [facility] [employer] [facility] [employer] [id number] kidney stones ADRIANA LLANOS 05/29 Released w/o Limitations [facility] [employer] [facility] [employer] TELE CONSULT [id number] needs labs for bodyfat eval MECHEDAWN 09/20 [facility] [employer] [facility] [employer]) [place] [id number] WTS #1&2 CORONA VEGA 09/20 Released w/o Limitations [facility] [employer] [facility] [employer] OUTPATIENT [id number] Right knee injury VASILIY MOREL 01/03 Released with Work/Duty Limitations [facility] [employer] OUTPATIENT [id number] 09/12 Released w/o Limitations [facility] OUTPATIENT [id number] 01/22 Released w/o Limitations [facility] OUTPATIENT [id number] 01/22 Released w/o Limitations Theater Facilit [facility] [employer] OUTPATIENT [id number] BETY Kraus 05/14 Released w/o Limitations [facility] [employer] [facility] [employer] [id number] KIMBERLI CORTES 05/14 Released w/o Limitations [facility] [employer] [facility] [employer] OUT[place]IENT [id number] CHARLIE COKER 05/27 Released w/o Limitations [facility] [employer] [facility] [employer]) OUTPATIENT [id number] 2008 YRIS MAE 06/04 Released w/o Limitations [facility] [employer] [facility] [employer] OUTPATIENT [id number] right shoulde r,right knee LOOSE, HEENA Bowles 06/20 Released with Work/Duty Limitations [facility] [employer] [facility] [employer] TELE CONSULT [id number] HEENA KEENAN 06/27 [facility] [employer] [facility] [employer] [id number] JOINT INSTABI LITY KNEE DAISY GRANADO 07/23 Released with Work/Duty Limitations [facility] [employer] [facility] [employer] [id number] FU RT KNEE ( PER MS WAGES ) DAISY GRANADO 07/25 Released with Work/Duty Limitations [facility] [employer] [facility] [employer] OUTPATIENT [id number] anxiety HEENA KEENAN 08/01 Released w/o Limitations [facility] [employer] [facility] [employer] OUTPATIENT [id number] problem s urinati ng HEENA KEENAN 08/06 Released w/o Limitations [facility] [employer] [facility] [employer] TELE CONSULT [id number] MRI- Consult for Occupat ional Therapy HEENA KEENAN 08/06 [facility] [employer] [facility] [employer] TELE CONSULT [id number] lab results HEENA KEENAN 08/11 [facility] [employer] [facility] [employer] TELE CONSULT [id number] KAI NUNEZ 08/27 [facility] [employer] [facility] [employer] TELE CONSULT [id number] PT summary KAI NUNEZ 01/05 [facility] [employer] [facility] Outpatient Encounter [id number] 04/20 [facility] Outpatient Encounter [id number] 04/30 [facility] Outpatient Encounter [id number] 05/04 [facility] Outpatient Encounter [id number] 05/10 [facility] PRO PHONE CALL 5-10 MIN [id number] Diagnos is: ICD-10- CM 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 BOY Vaughn 05/11 [facility] Outpatient Encounter [id number] 05/24 [facility] Outpatient Encounter [id number] 05/24 [facility] Outpatient Encounter [id number] 07/04 [facility] Outpatient Encounter [id number] 07/04 [facility] Outpatient Encounter [id number] 07/16 [facility] Outpatient Encounter [id number] Diagnos is: ICD-10- CM Z00.00 Encntr for general adult medical exam w/o abnorma l finding s TRESSA SANTOS 07/16 [facility] En[facility] [id number] 07/19 [facility] Encounter [id number] 08/21 [facility] Outpatient Encounter [id number] 08/28 [facility] PRO PHONE CALL 5-10 MIN [id number] Diagnos is: ICD-10- CM 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 BOY Vaughn 08/29 [facility] Outpatient Encounter [id number] 10/03 [facility] Outpatient Encounter [id number] 10/04 [facility] Outpatient Encounter [id number] 10/25 [facility] Outpatient Encounter [id number] 10/29 [facility] Outpatient Encounter [id number] 11/22 [facility] PRO PHONE CALL 5-10 MIN [id number] Diagnos is: ICD-10- CM Z12.2 Encntr screen for maligna nt neoplas m of respira tory organs YOAST,JOSÉ LUIS AN E 12/05 [facility] Outpatient Encounter [id number] 12/14 [facility] Outpatient Encounter [id number] 12/25 [facility] Outpatient Encounter [id number] 01/04 [facility] [place] [facility] ASS[facility]/REAS SESSMENT [id number] Diagnos is: ICD-10- CM 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 BOY Vaughn 01/09 [place] [facility] Outpatient Encounter [id number] 01/14 [facility] Outpatient Encounter [id number] 01/15 [facility] Outpatient Encounter [id number] 01/16 [facility] Outpatient Encounter [id number] 01/30 [facility] Outpatient Encounter [id number] PJ SOTELO 02/15 [facility] Out[facility] Encounter [id number] 03/15 [facility] [place] [facility] Outpatient Encounter [id number] 03/29 [place] [facility] [place] [facility] WELLNESS ASSESSMENT BY NONPH [id number] Diagnos is: ICD-10- CM M48.02 Spinal stenosi s, cervica l region LASLIETIN A E 04/03 [place] [facility] Outpatient Encounter [id number] 04/09 [facility] Outpatient Encounter [id number] 04/16 [facility] Outpatient Encounter [id number] 04/23 [facility] Outpatient Encounter [id number] 05/06 [facility] Encounter [id number] 05/08 [facility] Outpatient Encounter [id number] WILIAM GREGORIO 05/08 [facility] Encounter [id number] 05/24 [facility] Outpatient Encounter [id number] 06/12 [facility] Encounter [id number] 06/25 [facility] Outpatient Encounter [id number] ROSALINA RUEDA 06/28 [facility] En[facility] [id number] 07/03 [facility] Outpatient Encounter [id number] 07/16 [facility] Outpatient Encounter [id number] Diagnos is: ICD-10- CM Z00.00 Encntr for general adult medical exam w/o abnorma l finding s SANTOS,TRESSA THERINE R 07/16 [facility] Outpatient Encounter [id number] 07/18 [facility] [place] [facility] Outpatient Encounter [id number] 07/22 [facility] Outpatient Encounter [id number] 07/24 [facility] Outpatient Encounter [id number] 07/25 [facility] Outpatient Encounter [id number] 08/07 [facility] Outpatient Encounter [id number] 08/20 [facility] Outpatient Encounter [id number] 08/21 [facility] Outpatient Encounter [id number] 08/27 [facility] CASE MANAGEMENT [id number] Diagnos is: ICD-10- CM 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 Procedure Procedure Type Code Date Perfomer Comments Sour e SELF-CARE/HOME MANAGMENT TRAIN (EG,ACT OF DAILY LIVING (ADL) &COMPENSAT TRAIN,MEAL PREPARATION,SAFETY PROCS,AND INSTRUCT IN USE OF ASST TECHNOLOGY DEV/ADPT EQUIP) DIR ONE-ON-ONE CONT,EA 15 MINUTES 12/12/2005 [facility] IMMUNIZATION ADMINISTRATION (INCLUDES PERCUTANEOUS, INTRADERMAL, SUBCUTANEOUS, OR INTRAMUSCULAR INJECTIONS); 1 VACCINE (SINGLE OR COMBINATION VACCINE/TOXOID) 09/02/2005 [facility] POLIOVIRUS VACCINE, INACTIVATED (IPV), FOR SUBCUTANEOUS OR INTRAMUSCULAR USE 07/20/2005 [facility] VIS FUNCT SCREEN,AUTOMAT/SEMI- AUTOMAT BILAT QUANT DETERM VISUAL ACUITY,OCULAR ALIGN,COLOR VISION,PSEUDOISOCHRO MAT PLATES,& FIELD VIS (MAY INC ALL/SOME SCRN DETERM FOR CONTRAST SENSITIV,VIS UND GLARE) 07/19/2005 [facility] TELE ASSESS & MGT SRV PROV QUAL NONPHYS HLTH CARE PRO TO EST PAT,PARENT,GUARD NOT ORIG REL ASSESS & MGT SRV PROV W/IN PREV 7 DAYS NOR LEAD ASSESS & MGT SRV/PX W/IN NXT 24 HR/SOON APT;5-10 MIN MED DIS 01/05/2009 [facility] TELE ASSESS & MGT SRV PROV QUAL NONPHYS HLTH CARE PRO TO EST PAT,PARENT,GUARD NOT ORIG REL ASSESS & MGT SRV PROV W/IN PREV 7 DAYS NOR LEAD ASSESS & MGT SRV/PX W/IN NXT 24 HR/SOON APT;5-10 MIN MED DIS 08/27/2008 [facility] INDIVIDUAL PSYCHOTHERAPY, INSIGHT ORIENTED, BEHAVIOR MODIFYING AND/OR SUPPORTIVE, IN AN OFFICE OR OUTPATIENT FACILITY, APPROXIMATELY 20 TO 30 MINUTES FQZV-KO-ZQJU WITH THE PATIENT 07/17/2008 [facility] INDIVIDUAL PSYCHOTHERAPY, INSIGHT ORIENTED, BEHAVIOR MODIFYING AND/OR SUPPORTIVE, IN AN OFFICE OR OUTPATIENT FACILITY, APPROXIMATELY 20 TO 30 MINUTES GHZE-YA-VEPA WITH THE PATIENT 06/20/2008 [facility] INDIVIDUAL PSYCHOTHERAPY, INSIGHT ORIENTED, BEHAVIOR MODIFYING AND/OR SUPPORTIVE, IN AN OFFICE OR OUTPATIENT FACILITY, APPROXIMATELY 20 TO 30 MINUTES IUSU-OP-UDDZ WITH THE PATIENT 06/09/2008 [facility] INDIVIDUAL PSYCHOTHER,INTERACT, PLAY EQUIP,PHYS DEVICES,CORRECTIONAL PROGRAM OFFICER/OTH MECHANISMS OF NON-VERBAL COMM, IN AN OFFICE/OUTPATIENT FACIL,APPROX 20-30 MIN JUXZ-ZP-[id number] W THE PAT;W VII NETWORK EVAL & MGT SER 06/09/2008 [facility] INDIVIDUAL PSYCHOTHER,INTERACT, PLAY EQUIP,PHYS DEVICES,CORRECTIONAL PROGRAM OFFICER/OTH MECHANISMS OF NON-VERBAL COMM, IN AN OFFICE/OUTPATIENT FACIL,APPROX 20-30 MIN AQHU-ST-[id number] W THE PAT;W MED EVAL & MGT SER 06/05/2008 [facility] INDIVIDUAL PSYCHOTHERAPY, INSIGHT ORIENTED, BEHAVIOR MODIFYING AND/OR SUPPORTIVE, IN AN OFFICE OR OUTPATIENT FACILITY, APPROXIMATELY 20 TO 30 MINUTES MIXO-AH-URES WITH THE PATIENT 06/05/2008 [facility] ANALYSIS OF CLINICAL DATA STORED IN COMPUTERS (EG, ECGS, BLOOD PRESSURES, HEMATOLOGIC DATA) 06/04/2008 [facility] INDIVIDUAL PSYCHOTHERAPY, INSIGHT ORIENTED, BEHAVIOR MODIFYING AND/OR SUPPORTIVE, IN AN OFFICE OR OUTPATIENT FACILITY, APPROXIMATELY 20 TO 30 MINUTES FKRJ-EV-RQRH W THE PATIENT; W [facility] EVAL & MGT SER 05/29/2008 [facility] INDIVIDUAL PSYCHOTHERAPY, INSIGHT ORIENTED, BEHAVIOR MODIFYING AND/OR SUPPORTIVE, IN AN OFFICE OR OUTPATIENT FACILITY, APPROXIMATELY 20 TO 30 MINUTES ZPXE-BO-XXWI WITH THE PATIENT 05/29/2008 [facility] INDIVIDUAL PSYCHOTHERAPY, INSIGHT ORIENTED, BEHAVIOR MODIFYING AND/OR SUPPORTIVE, IN AN OFFICE OR OUTPATIENT FACILITY, APPROXIMATELY 45 TO 50 MINUTES FJXE-MH-QNSX WITH THE PATIENT 05/28/2008 [facility] INDIVIDUAL PSYCHOTHERAPY, INSIGHT ORIENTED, BEHAVIOR MODIFYING AND/OR SUPPORTIVE, IN AN OFFICE OR OUTPATIENT FACILITY, APPROXIMATELY 45 TO 50 MINUTES XHZS-HV-VYVY WITH THE PATIENT 05/26/2008 [facility] GROUP PSYCHOTHERAPY (OTHER THAN OF A MULTIPLE-FAMILY GROUP) 05/20/2008 [facility] ANALYSIS OF CLINICAL DATA STORED IN COMPUTERS (EG, ECGS, BLOOD PRESSURES, HEMATOLOGIC DATA) 05/14/2008 [facility] SCREENING TEST OF VISUAL ACUITY, QUANTITATIVE, BILATERAL 05/14/2008 [facility] GROUP PSYCHOTHERAPY (OTHER THAN OF A MULTIPLE-FAMILY GROUP) 05/12/2008 [facility] PHARMACOLOGIC MANAGEMENT, INCLUDING PRESCRIPTION, USE, AND REVIEW OF MEDICATION WITH NO MORE THAN MINIMAL MEDICAL PSYCHOTHERAPY 05/08/2008 [facility] INDIVIDUAL PSYCHOTHERAPY, INSIGHT ORIENTED, BEHAVIOR MODIFYING AND/OR SUPPORTIVE, IN AN OFFICE OR OUTPATIENT FACILITY, APPROXIMATELY 45 TO 50 MINUTES FWEM-YW-XWTA WITH THE PATIENT 05/08/2008 [facility] INDIVIDUAL PSYCHOTHERAPY, INSIGHT ORIENTED, BEHAVIOR MODIFYING AND/OR SUPPORTIVE, IN AN OFFICE OR OUTPATIENT FACILITY, APPROXIMATELY 45 TO 50 MINUTES NIOR-JP-KJNC WITH THE PATIENT 05/07/2008 [facility] GROUP PSYCHOTHERAPY (OTHER THAN OF A MULTIPLE-FAMILY GROUP) 05/05/2008 [facility] GROUP PSYCHOTHERAPY (OTHER THAN OF A MULTIPLE-FAMILY GROUP) 04/28/2008 [facility] INDIVIDUAL PSYCHOTHERAPY, INSIGHT ORIENTED, BEHAVIOR MODIFYING AND/OR SUPPORTIVE, IN AN OFFICE OR OUTPATIENT FACILITY, APPROXIMATELY 45 TO 50 MINUTES VJBW-PT-RXGL WITH THE PATIENT 04/22/2008 [facility] INDIVIDUAL PSYCHOTHERAPY, INSIGHT ORIENTED, BEHAVIOR MODIFYING AND/OR SUPPORTIVE, IN AN OFFICE OR OUTPATIENT FACILITY, APPROXIMATELY 20 TO 30 MINUTES XOBR-EL-FAGS WITH THE PATIENT 04/22/2008 [facility] INTERACTIVE PSYCHIATRIC DIAGNOSTIC INTERVIEW EXAMINATION USING PLAY EQUIPMENT, PHYSICAL DEVICES, OIL DERRICK OPERATOR, OR OTHER MECHANISMS OF COMMUNICATION 04/22/2008 [facility] COLLECTION OF VENOUS BLOOD BY VENIPUNCTURE 04/10/2008 [facility] INDIVIDUAL PSYCHOTHERAPY, INSIGHT ORIENTED, BEHAVIOR MODIFYING AND/OR SUPPORTIVE, IN AN OFFICE OR OUTPATIENT FACILITY, APPROXIMATELY 45 TO 50 MINUTES PJXL-MH-RRJL WITH THE PATIENT 03/22/2007 [facility] TYPHOID VACCINE, ACETONE-KILLED, DRIED (AKD), FOR SUBCUTANEOUS USE (U.S. ) 02/20/2007 [facility] INTERACTIVE GROUP PSYCHOTHERAPY 01/02/2007 [facility] INTERACTIVE GROUP PSYCHOTHERAPY 12/19/2006 [facility] INDIVIDUAL PSYCHOTHERAPY, INSIGHT ORIENTED, BEHAVIOR MODIFYING AND/OR SUPPORTIVE, IN AN OFFICE OR OUTPATIENT FACILITY, APPROXIMATELY 45 TO 50 MINUTES NETZ-QY-PVGJ WITH THE PATIENT 12/13/2006 [facility] INDIVIDUAL PSYCHOTHERAPY, INSIGHT ORIENTED, BEHAVIOR MODIFYING AND/OR SUPPORTIVE, IN AN OFFICE OR OUTPATIENT FACILITY, APPROXIMATELY 75 TO 80 MINUTES FROF-[id number] WITH THE PATIENT 12/13/2006 [facility] INTERACTIVE PSYCHIATRIC DIAGNOSTIC INTERVIEW EXAMINATION USING PLAY EQUIPMENT, PHYSICAL DEVICES, OIL DERRICK OPERATOR, OR OTHER MECHANISMS OF COMMUNICATION 12/13/2006 [facility] PSYCHIATRIC DIAGNOSTIC INTERVIEW EXAMINATION 11/24/2006 [facility] INDIVIDUAL PSYCHOTHERAPY, INSIGHT ORIENTED, BEHAVIOR MODIFYING AND/OR SUPPORTIVE, IN AN OFFICE OR OUTPATIENT FACILITY, APPROXIMATELY 45 TO 50 MINUTES [id number] WITH THE PATIENT 11/23/2006 [facility] NUTRITIONAL COUNSELING, DIETITIAN VISIT 09/20/2006 [facility] UNLISTED SPECIAL SERVICE, PROCEDURE OR REPORT 05/30/2006 [facility] INJECTION, PROMETHAZINE HCL, UP TO 50 MG 05/26/2006 [facility] PATIENT EDUCATION, NOT OTHERWISE CLASSIFIED, NON-PHYSICIAN PROVIDER, GROUP, PER SESSION 03/28/2006 [facility] Non-Physician Phone Call To Patient/Provider Brief (5-10min) Non-Physician Phone Call To Patient/Provider Brief (5-10min) [id number] 01/05/[address] [facility] Non-Physician Phone Call To Patient/Provider Brief (5-10min) Non-Physician Phone Call To Patient/Provider Brief (5-10min) [id number] 09/02/[address] [facility] Psychiatric Therapy Individual Approximately 20-30 Minutes Psychiatric Therapy Individual Approximately 20-30 Minutes [id number] 06/20/[address] [facility] Behavior Modification Therapy Behavior Modification Therapy [id number] 06/10/2008 JARODJEANNEVAEH L [facility] Psych Ther Indiv Interact Appr 20-30 Min W/ Med Eval Manage Psych Ther Indiv Interact Appr 20-30 Min W/ Med Eval Manage [id number] 06/10/[address] [facility] Psychiatric Therapy Individual Approximately 20-30 Minutes Psychiatric Therapy Individual Approximately 20-30 Minutes [id number] 06/09/[address] [facility] Behavior Modification Therapy Behavior Modification Therapy [id number] 06/06/2008 JAROD, NEVAEH L [facility] Psych Ther Indiv Interact Appr 20-30 Min W/ Med Eval Manage Psych Ther Indiv Interact Appr 20-30 Min W/ Med Eval Manage [id number] 06/06/[address] [facility] Audiometry Group Testing Audiometry Group Testing [id number] 06/04/[address] [facility] Patient education, not otherwise cla ified, non-physician provider, group, per se ion 06/04/[address] [facility] [employer] Analysis Of Computerized Data [employer] Analysis Of Computerized Data [id number] 06/04/[address] [facility] Ear Protector Attenuation Measurements Ear Protector Attenuation Measurements [id number] 06/04/[address] [facility] Psychiatric Evaluation Review of Records and Reports Psychiatric Evaluation Review of Records and Reports [id number] 05/29/[address] [facility] Behavior Modification Therapy Behavior Modification Therapy 86002 05/29/2008 JAROD, NEVAEH L DoD Psych Ther Indiv Interact Appr 20-30 Min W/ Med Eval Manage Psych Ther Indiv Interact Appr 20-30 Min W/ Med Eval Manage [id number] 05/29/[address] [facility] Screening Test Of Visual Acuity, Quantitative, Bilateral Screening Test Of Visual Acuity, Quantitative, Bilateral 36092 05/14/[address] [facility] Patient education, not otherwise cla ified, non-physician provider, group, per se ion 05/14/[address] [facility] [employer] Analysis Of Computerized Data Special Services Analysis Of Computerized Data [id number] 05/14/[address] [facility] Audiometry Group Testing Audiometry Group Testing [id number] 05/14/[address] [facility] Psychoactive Medication Management Psychoactive Medication Management 62998 05/12/[address] [facility] Psychiatric Evaluation Comprehensive Examination Psychiatric Evaluation Comprehensive Examination 29099 05/12/[address] [facility] Clinical Social Work Counseling Group Clinical Social Work Counseling Group [id number] 01/05/[address] [facility] Clinical Social Work Counseling Group Clinical Social Work Counseling Group [id number] 12/21/[address] [facility] Psychiatric Therapy Individual Approximately 45-50 Minutes Psychiatric Therapy Individual Approximately 45-50 Minutes [id number] 11/27/[address] [facility] Nutritional counseling, dietitian visit 09/22/[address] [facility] Medical Nutrition Therapy Initial A e ment, Intervention Medical Nutrition Therapy Initial Assessment, Intervention 73770 09/22/2006 [place] Audiometry Group Testing Audiometry Group Testing [id number] 03/28/2006 BETY FOX Ear Protector Attenuation Measurements Ear Protector Attenuation Measurements [id number] 03/28/[address] [facility] Patient education, not otherwise cla ified, non-physician provider, group, per se ion 03/28/[address] [facility] Phys Therapy Education Self Care Training - Per 15 Minutes Phys Therapy Education Self Care Training - Per 15 Minutes 43104 12/13/[address] [facility] Physical Medicine Physical Therapy Evaluation Physical Medicine Physical Therapy Evaluation [id number] 12/13/[address] [facility] Immunization Administration One Vaccine Immunization Administration One Vaccine 30086 09/02/[address] [facility] Supervised Injection Intramuscular Antibiotic Supervised Injection Intramuscular Antibiotic 24175 07/27/[address] [facility] Immunization Administration One Vaccine Immunization Administration One Vaccine 20126 07/27/[address] [facility] Tdap Vaccine Tdap Vaccine 65128 07/27/[address] [facility] Meningococcal Polysacch Diphtheria Toxoid Conjugate Vaccine 07/27/[address] [facility] Vaccines Viral Measles, Mumps and Rubella, Live Vaccines Viral Measles, Mumps and Rubella, Live 24384 07/27/[address] [facility] Hepatitis A And Hepatitis B (Intramuscular Use) Adult Dosage Hepatitis A And Hepatitis B (Intramuscular Use) Adult Dosage 92777 07/27/[address] [facility] Venipuncture Venipuncture 83935 07/27/[address] Supervised Injection Subcutaneous Supervised Injection Subcutaneous 40844 07/27/[address] [facility] Skin Test Anergy Tuberculin Intradermal Skin Test Anergy Tuberculin Intradermal 20193 07/27/2005 DAVON OAKES Influenza Split Virus Vaccine Age 3+ Years Intramuscular 07/27/2005 DAVON OAKES Vaccines Viral Polio, Inactivated (Salk) Vaccines Viral Polio, Inactivated (Salk) 12352 07/27/2005 DAVON OAKES Injection, penicillin G benzathine, up to 1,200,000 units 07/27/[address] [facility] Immunization Administration Each Additional Vaccine 07/27/[address] [facility] Visual Function Screening Visual Function Screening [id number] 07/19/[address] [facility] Social History Combined list of available smoking, tobacco, and other social history from Department of Defense and Veterans Affairs facilities. Social History Type Response Date Comment Sour e Tobacco smoking status PRIS VA-TOBACCO NEVER USED OTHER TYPE 07/16/2024 [facility] History of tobacco use VA-TOBACCO USE EV TED DAY CIGARETTES 07/16/2024 [facility] History of tobacco use VA-TOBACCO USER E VERY DAY 07/17/2023 [facility] History of tobacco use VA-TOBACCO USER E VERY DAY 07/28/2022 [facility] History of tobacco use PREVIOUS SMOKER 12/08/2021 [facility] History of tobacco use VA-TOBACCO USER E VERY DAY 06/14/2021 [facility] History of tobacco use VA-TOBACCO USER E VERY DAY 07/02/2020 [facility] History of tobacco use VA-TOBACCO USE MED NO 03/25/2019 [facility] History of tobacco use TOBACCO USER OFFE RED MEDS 07/18/2017 [facility] History of tobacco use TOBACCO USER OFFE RED MEDS 06/19/2017 [facility] History of tobacco use TOBACCO [facility]ED S [facility] 05/10/2016 [facility] History of tobacco use TOBACCO OFFERED P T MEDS (PROVIDER) 03/11/2015 [facility] History of tobacco use TOBACCO OFFERED P T MEDS (PROVIDER) 01/19/2015 [facility] History of tobacco use TOBACCO OFFERED P T MEDS (PROVIDER) 05/22/2014 [facility] History [facility] tobacco use TOBACCO OFFERED S [facility] 10/29/2013 [facility] History of tobacco use TOBACCO OFFERED P T MEDS (PROVIDER) 10/08/2012 [facility] History of tobacco use QUIT TOBACCO >12 MO and <7 YRS AGO 08/18/2011 [facility] History of tobacco use CO-NO TOBACCO USE PAST 12 MO 11/10/2010 [facility] History of tobacco use TOBACCO OFFERED P T MEDS (PROVIDER) 10/01/2008 [facility] This section is an empty social history section. DoD Advance Directives List of completed, amended, or rescinded Advance Directives on record at Department of Veterans Affairs facilities. An actual copy of the Directive is not included. Date Advance Directive Provider Source 08/18/2011 ADVANCE DIRECTIVE DISCUSSION [employer]
--- OUTSIDE RECORDS SUMMARY | 2024-10-04 09:07 | XMS_ITS | Patient Health Record ---
Author Organization [facility] Address [address] [place] [address] Care Team Providers Care [address] Bailiff Name Role Phone [facility] Unavailable Mona Burns Unavailable [phone] [place], [place] Unavailable Unavailable Sawyer Benavidez Unavailable [phone] Migration, Provider Unavailable Unavailable Tammie Ji Unavailable [phone] Camden Gurrola Unavailable [phone] Adilson Fitzpatrick Unavailable [phone] Allergies Allergen (clinical drug ingredient) Drug/Non Drug Allergy documented on EMR Reaction Allergy Type Onset Date Status codeine Codeine Sulfate stomach upset Drug Allergy Active codeine Codeine Vomiting Drug Allergy Active morphine Morphine stomach upset Drug Allergy Act jon Results Component Value Reference Range Flag Notes Fluoro Needle For Placement - Spine 32111 Reviewed date:02/15/2024 02:33:38 PM Interpretation: Performing Lab: Notes/Report: Urine Drug Screen (cup read) - [id number] Reviewed date:07/17/2024 04:00:29 PM Interpretation: Performing Lab: Notes/Report: AMP - DIANE - BUP - BZO - MDMA - OPI - PCP - OXY + MTD - MAMP - Urine Drug Screen (cup read) - [id number] Reviewed date:09/12/2024 02:05:05 PM Interpretation: Performing Lab: Notes/Report: AMP - DIANE - BUP - BZO - MDMA - OPI - PCP - OXY - MTD - MAMP - Urine Drug Screen (cup read) - [id number] Reviewed date:01/05/2024 08:24:12 AM Interpretation: Performing Lab: Notes/Report: OXY POS zzzUrine Drug Screen (confir mation by instrument) - [id number] Reviewed date:03/19/2024 02:07:44 PM Interpretation: Performing Lab: Notes/Report: Urine Confirmation Panel (in strument) - [id number] Reviewed date:07/24/2024 02:50:16 PM Interpretation: Performing Lab: Notes/Report: 6-Acetylmorphine 0 <6 ng/mL N This dexter t was developed and its performance characteristics determined by [facility]. It has not been cleared or approved by the U.S. Food and Drug Administration. 7-Aminoclonazepam 0 <60 ng/mL N This te st was developed and its performance characteristics determined by [facility]. It has not been cleared or approved by the U.S. Food and Drug Administration. Alprazolam 0 <60 ng/mL N This test was developed and its performance characteristics determined by [facility]. It has not been cleared or approved by the U.S. Food and Drug Administration. Amphetamine 0 <75 ng/mL N This test was developed and its performance characteristics determined by [facility]. It has not been cleared or approved by the U.S. Food and Drug Administration. aOH-Alprazolam 0 <60 ng/mL N This test was developed and its performance characteristics determined by [facility]. It has not been cleared or approved by the U.S. Food and Drug Administration. Buprenorphine 0.0 <7.5 ng/mL N This test w as developed and its performance characteristics determined by [facility]. It has not been cleared or approved by the U.S. Food and Drug Administration. Norbuprenorphine 0.0 <37.5 ng/mL N This te st was developed and its performance characteristics determined by [facility]. It has not been cleared or approved by the U.S. Food and Drug Administration. Carisoprodol 0 <75 ng/mL N This test wa s developed and its performance characteristics determined by [facility]. It has not been cleared or approved by the U.S. Food and Drug Administration. Codeine 0 <75 ng/mL N This test was developed and its performance characteristics determined by [facility]. It has not been cleared or approved by the U.S. Food and Drug Administration. EDDP 0 <75 ng/mL N This test was developed and its performance characteristics determined by [facility]. It has not been cleared or approved by the U.S. Food and Drug Administration. Fentanyl 0 <6 ng/mL N This test was developed and its performance characteristics determined by [facility]. It has not been cleared or approved by the U.S. Food and Drug Administration. Hydrocodone 0 <75 ng/mL N This test was developed and its performance characteristics determined by [facility]. It has not been cleared or approved by the U.S. Food and Drug Administration. Hydromorphone 0 <75 ng/mL N This test w as developed and its performance characteristics determined by [facility]. It has not been cleared or approved by the U.S. Food and Drug Administration. Lorazepam 0 <60 ng/mL N This test was developed and its performance characteristics determined by [facility]. It has not been cleared or approved by the U.S. Food and Drug Administration. MDMA 0 <75 ng/mL N This test was developed and its performance characteristics determined by [facility]. It has not been cleared or approved by the U.S. Food and Drug Administration. Meperidine 0.0 <37.5 ng/mL N This test was developed and its performance characteristics determined by [facility]. It has not been cleared or approved by the U.S. Food and Drug Administration. Meprobamate 0 <75 ng/mL N This test was developed and its performance characteristics determined by [facility]. It has not been cleared or approved by the U.S. Food and Drug Administration. Methamphetamine 29 <75 ng/mL N This test was developed and its performance characteristics determined by [facility]. It has not been cleared or approved by the U.S. Food and Drug Administration. Methadone 0 <75 ng/mL N This test was developed and its performance characteristics determined by [facility]. It has not been cleared or approved by the U.S. Food and Drug Administration. Morphine 0 <75 ng/mL N This test was developed and its performance characteristics determined by [facility]. It has not been cleared or approved by the U.S. Food and Drug Administration. Nordiazepam 0 <60 ng/mL N This test was developed and its performance characteristics determined by [facility]. It has not been cleared or approved by the U.S. Food and Drug Administration. Norfentanyl 0 <6 ng/mL N This test was developed and its performance characteristics determined by [facility]. It has not been cleared or approved by the U.S. Food and Drug Administration. Normeperidine 0.0 <37.5 ng/mL N This test was developed and its performance characteristics determined by [facility]. It has not been cleared or approved by the U.S. Food and Drug Administration. O-desmethyltramadol 20 <75 ng/mL N This test was developed and its performance characteristics determined by [facility]. It has not been cleared or approved by the U.S. Food and Drug Administration. Oxazepam 0 <60 ng/mL N This test was developed and its performance characteristics determined by [facility]. It has not been cleared or approved by the U.S. Food and Drug Administration. Oxycodone 15.9 <37.5 ng/mL N This test was developed and its performance characteristics determined by [facility]. It has not been cleared or approved by the U.S. Food and Drug Administration. Oxymorphone 74 <75 ng/mL N This test was developed and its performance characteristics determined by [facility]. It has not been cleared or approved by the U.S. Food and Drug Administration. Phencyclidine 0.0 <7.5 ng/mL N This test w as developed and its performance characteristics determined by [facility]. It has not been cleared or approved by the U.S. Food and Drug Administration. Tapentadol 0.0 <37.5 ng/mL N This test was developed and its performance characteristics determined by [facility]. It has not been cleared or approved by the U.S. Food and Drug Administration. Temazepam 0 <60 ng/mL N This test was developed and its performance characteristics determined by [facility]. It has not been cleared or approved by the U.S. Food and Drug Administration. Tramadol 0 <75 ng/mL N This test was developed and its performance characteristics determined by [facility]. It has not been cleared or approved by the U.S. Food and Drug Administration. Norhydrocodone 0 <75 ng/mL N This test was developed and its performance characteristics determined by [facility]. It has not been cleared or approved by the U.S. Food and Drug Administration. Noroxycodone 216 <38 ng/mL H This test wa s developed and its performance characteristics determined by [facility]. It has not been cleared or approved by the U.S. Food and Drug Administration. Pregabalin 0 <225 ng/mL N This test was developed and its performance characteristics determined by [facility]. It has not been cleared or approved by the U.S. Food and Drug Administration. Gabapentin 0 <225 ng/mL N This test was developed and its performance characteristics determined by [facility]. It has not been cleared or approved by the U.S. Food and Drug Administration. Benzoylecgonine 0.0 <37.5 ng/mL N This dexter t was developed and its performance characteristics determined by [facility]. It has not been cleared or approved by the U.S. Food and Drug Administration. 4-Hydroxy Xylazine 0 <25 ng/mL N This t est was developed and its performance characteristics determined by [facility]. It has not been cleared or approved by the U.S. Food and Drug Administration. Tox Results Reviewed date:07/24/2024 02:58:40 PM Interpretation: Performing Lab: Notes/Report: Reason For Referral Reason Esophagitis EGD/CO STEPHANIE Diagnosis 1 Other esophagitis wi thout bleeding (K20.80) Referring Provider First Name Tony badna Referring Provider Last Name [place] Referring Provider Speciality [facility] Referred Organization [facility] Referred Provider Sawyer Benavidez Referred Address [address] ,[facility] [place],[address], Referral Priority Routine Medications Medication SIG (Take, Route, Frequency, Duration) Notes Start Date End Date Status traZODone HCl 150 MG Tablet 1 tablet at bedtime Orally Once a day Active Sucralfate *Pick strength-form from [employer] for eRX* Not-Taking Sucralfate 1 GM Tablet 1 tablet on an empty stomach Orally four times a day; Duration: 30 day(s) Active Pantoprazole Sodium 40 MG Tablet Delayed Release 1 tablet Orally twice a day; Duration: 30 day(s) Not-Taking oxyCODONE HCl 5 MG Tablet 1 tablet as needed Orally every 12 hrs; Duration: 30 days As needed Not to exceed 2 per day Fill on 09-12-24 due to shipping times 09/12/2024 10/12/2024 Active Protonix *Pick strength-form from [employer] for eRX* Not-Taking Pantoprazole Sodium 40 MG Tablet Delayed Release 1 tablet Orally twice a day 09/16/2019 Active Famotidine 20 MG Tablet 2 tablet at bedtime as needed Orally Once a day Active clonazePAM 0.5 MG Tablet 1 tablet at bedtime Orally twice a day Not-Taking Lexapro *Pick strength-form from [employer] for eRX* Not-Taking Ondansetron HCl 8 MG Tablet 1 tablet sublingual as needed Orally every 8 hours as needed. 08/27/2024 Active Zoloft 50 MG Tablet 1 tablet Orally Once a day Not-Taking Immunizations Vaccine Route Administration Date Status Comme nts Influenza (split), 3 yrs and above Unknown 09/21/2017 Refused Admin When: [facility] REFUSED Social History Tobacco Use: Social History Observation Description Date Details (start date - stop date) Current Smoker NA - NA Social History Depression Screening Social Info Question Answer Notes PHQ-9 Little interest or pleasure in doing thin gs Several days Feeling down, depressed, or hopeless Several day s Trouble falling or staying asleep, or sleeping t oo much Several days Feeling tired or having little energy Several da ys Poor appetite or overeating Several days Feeling bad about yourself, or that you are a failure, or have let yourself or your family down Several days Trouble concentrating on thi ngs, such as reading the newspaper or watching television Several days Moving or speaking so slowly that other people could have noticed. Or the opposite ? being so fidgety or restless that you have been moving around a lot more than usual Several days Thoughts that you would be b josiah off , or of hurting yourself in some way Not at all Total Score 8 Interpretation Mild Depression Drugs/Alcohol: Social Info Question Answer Notes Alcohol Screen (Audit-C) Did you have a drink containing alcohol in the past year? No Points 0 Interpretation Negative Tobacco Use: Social Info Question Answer Notes xTobacco Use/Smoking Are you a current smoker How often do you smoke cigarettes? every day How many cigarettes a day do you smoke? 11-20 Additional Details Category Social Info Options Details Miscellaneous: Marital status: Occupation: disabled Drugs/Alcohol: Do you smoke marijuana? De nies Do you drink alcohol? No Migrated Social History Migrated Social History Alcoholic beverages? - No, Currently on disability? - Yes, Drug or substance abuse? - No, exposure to toxins/poisonous substances at work - No, I am interested in quitting. - No, Involved in any legal proceedings or lawsuits? - No, Marital Status - , Nonprescription drug use? - No, Participation in detoxification or rehabilitation - No, Smoking - / PPD, Smoking status (MU) - Current every day smoker, Working currently? 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 Problem Osteoarthritis (259609835) Polyosteoarthritis , unspecified (M15.9) Active confirmed Problem Thoracic spondylosis without myelopathy (825930345) Other spondylosis with radiculopathy, thoracic region (M47.24) Active confirmed Problem Cervical spondylosis without myelopathy (124798196) Other spondylosis, cervical region (M47.892) Active confirmed Problem Lumbosacral spondylosis without myelopathy (48503856) Other spondylosis, lumbosacral region (M47.897) Active confirmed Problem Degeneration of cervical intervertebral disc (48584759) Other cervical disc degeneration, unspecified cervical region (M50.30) Active confirmed Problem Degeneration of thoracic intervertebral disc (16974115) Other intervertebral disc degeneration, thoracic region (M51.34) Active confirmed Problem Degeneration of lumbosacral intervertebral disc (02684511) Other intervertebral disc degeneration, lumbosacral region (M51.37) Active confirmed Problem Cervical radiculopathy (20153162) Radiculopathy, cervical region (M54.12) Active confirmed Problem Lumbosacral radiculopathy (7367008) Radiculopathy, lumbosacral region (M54.17) Active confirmed Problem Post-laminectomy syndrome (35261634) Postlaminectomy syndrome, not elsewhere classified (M96.1) Active confirmed Problem Abnormal gait (80885077) Unspecified abnormalities of gait and mobility (R26.9) 024 Active confirmed Problem Gastroesophageal reflux disease (disorder) (394570672) Chronic GERD (K21.9) Active confirmed Problem Smoker (85665725) Smoker (F17.200) Active confi rmed Problem Posttraumatic stress disorder (71757440) PTSD (post-traumatic stress disorder) (F43.10) Active confirmed Problem History of cholecystectomy (961327642) Status post cholecystectomy (Z90.49) Active confirmed Problem Gastroesophageal reflux disease (424378369) Gastroesophageal reflux disease, unspecified whether esophagitis present (K21.9) Active confirmed Vital Signs Heart Rate 66 /min 08/27/2024 Temperature 97.5 degrees Fahrenheit 08/27/2024 Respiratory Rate 16 /min 08/27/2024 Oximetry 96 % 08/27/2024 Blood pressure diastolic 80 mm Hg 08/27/2024 Height-cm 182.88 cm 09/12/2024 Weight-kg 91.17 kg 09/12/2024 Height 72.00 in 09/12/2024 Blood pressure systolic 115 mm Hg 08/27/2024 Weight 201 lbs 09/12/2024 BMI 27.26 kg/m2 09/12/2024 Procedures Procedure Date Ordered Date Performed Result Body Sit e Epidural, Cervical/ Thoracic , w/ imaging guidance - 16014 02/15/2024 02/15/2024 N/A Inj. Trigger Points, 3 or mo re muscles - 06/25/2024 06/25/2024 04-24 vm Encounters Encounter Location Date Provider Diagnosis [facility] [address] [facility] [place] [address] 10/02/2024 Sawyer Benavidez Screening for colon cancer Z12.11 ; Vidal's esophagus without dysplasia K22.70 and Gastroesophageal reflux disease, unspecified whether esophagitis present K21.9 [facility] [address] [place] [address] 11/23/2023 Mona Burns [facility] [address] [place] [address] 01/04/2024 Mona Burns Chronic pain syndrom e G89.4 ; Thoracic radiculopathy M54.14 ; Other intervertebral disc degeneration, thoracic region M51.34 ; Other cervical disc degeneration, unspecified cervical region M50.30 ; Other spondylosis, cervical region M47.892 ; Radiculopathy, cervical region M54.12 ; Degeneration of intervertebral disc of lumbosacral region with discogenic back pain M51.370 ; Radiculopathy, lumbosacral region M54.17 ; Other spondylosis, lumbosacral region M47.897 ; Postlaminectomy syndrome, not elsewhere classified M96.1 ; Polyosteoarthritis, unspecified M15.9 ; Bursitis of right shoulder M75.51 ; Unspecified abnormalities of gait and mobility R26.9 and penitentiary (current) use of opiate analgesic Z79.891 [facility] [address] [place] [address] 02/15/2024 Camden Gurrola Other spondylosis wi th radiculopathy, thoracic region M47.24 [facility] [address] [address] 03/14/2024 Mona Burns Chronic pain syndrom e G89.4 ; Other cervical disc degeneration, unspecified cervical region M50.30 ; Radiculopathy, cervical region M54.12 ; Other spondylosis, cervical region M47.892 ; Other intervertebral disc degeneration, thoracic region M51.34 ; Degeneration of intervertebral disc of lumbosacral region with discogenic back pain M51.370 ; Radiculopathy, lumbosacral region M54.17 ; Other spondylosis, lumbosacral region M47.897 ; Postlaminectomy syndrome, not elsewhere classified M96.1 ; Polyosteoarthritis, unspecified M15.9 ; Bursitis of right shoulder M75.51 ; Unspecified abnormalities of gait and mobility R26.9 and penitentiary (current) use of opiate analgesic Z79.891 [facility] [address] [address] 05/08/2024 Camden Gurrola Chronic pain syndrom e G89.4 ; Other cervical disc degeneration, unspecified cervical region M50.30 ; Radiculopathy, cervical region M54.12 ; Other spondylosis, cervical region M47.892 ; Other intervertebral disc degeneration, thoracic region M51.34 ; Degeneration of intervertebral disc of lumbosacral region with discogenic back pain M51.370 ; Radiculopathy, lumbosacral region M54.17 ; Other spondylosis, lumbosacral region M47.897 ; Postlaminectomy syndrome, not elsewhere classified M96.1 ; Polyosteoarthritis, unspecified M15.9 ; Bursitis of right shoulder M75.51 ; Unspecified abnormalities of gait and mobility R26.9 and penitentiary (current) use of opiate analgesic Z79.891 [facility] [address] [place], [place] [address] 06/25/2024 Camden Gurrola Thoracic spine pain M54.6 and Other low back pain M54.59 [facility] [place] [address] [place] [address] 07/17/2024 Camden Gurrola Chronic pain syndrom e G89.4 ; Other spondylosis, lumbosacral region M47.897 ; Other cervical disc degeneration, unspecified cervical region M50.30 ; Radiculopathy, cervical region M54.12 ; Other spondylosis, cervical region M47.892 ; Other intervertebral disc degeneration, thoracic region M51.34 ; Degeneration of intervertebral disc of lumbosacral region with discogenic back pain M51.370 ; Radiculopathy, lumbosacral region M54.17 ; Postlaminectomy syndrome, not elsewhere classified M96.1 ; Polyosteoarthritis, unspecified M15.9 ; Bursitis of right shoulder M75.51 ; Unspecified abnormalities of gait and mobility R26.9 and 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.891 [facility] [address] [place] [address] 08/27/2024 Adilson Fitzpatrick Chronic GERD K21.9 ; Vidal's esophagus without dysplasia K22.70 ; Hiatal hernia K44.9 ; Abnormal CT scan, stomach R93.3 ; Status post cholecystectomy Z90.49 ; Smoker F17.200 ; Preprocedural examination Z01.818 and Screening for colon cancer Z12.11 [facility] [address] [place] [address] 09/12/2024 Mona Burns Chronic pain syndrom e G89.4 ; Other cervical disc degeneration, unspecified cervical region M50.30 ; Other intervertebral disc degeneration, thoracic region M51.34 ; Degeneration of intervertebral disc of lumbosacral region with discogenic back pain M51.370 ; Radiculopathy, cervical region M54.12 ; Other spondylosis, cervical region M47.892 ; Radiculopathy, lumbosacral region M54.17 ; Other spondylosis, lumbosacral region M47.897 ; Postlaminectomy syndrome, not elsewhere classified M96.1 ; Polyosteoarthritis, unspecified M15.9 ; Bursitis of right shoulder M75.51 ; Unspecified abnormalities of gait and mobility R26.9 ; 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.891 and Depression screen Z13.31 [facility]Facility 0 0 12/09/2023 Provider Migration [facility] 0 0 12/10/2023 Provider Migration [facility] [address] [place] [address] 01/04/2024 Camden Gurrola [facility] [address] [place] [address] 03/14/2024 Camden Gurrola [facility] [address] [facility] [place] [address] 04/15/2024 Tammie Ji Postlaminectomy syndrome, not elsewhere classified M96.1 [facility] [address] [facility] [place] [address] 08/13/2024 Camden Gurrola Radiculopathy, cervical region M54.12 [facility] [address] [place] [place] [address] 09/12/2024 Camden Gurrola Radiculopathy, cervical region M54.12 Assessments Encounter Date Diagnosis (ICD Code) Assessment Notes Treatment Notes Treatment Clinical Notes Section Notes 09/12/2024 Radiculopathy, cervical region (ICD-10 - M54.12) 10/02/2024 Screening for colon cancer (ICD-10 - Z12.11) Average risk screening colonoscopy today. 09/12/2024 Chronic pain syndrome (ICD-10 - G89.4) Nice discussion with the patient today regarding his chronic pain complaints. He continues with neck, mid back, lower back pain as well as multiple joint pain. He continues to defer any interventional procedures or updated imaging. He does report he has been having a lot of stomach problems and is scheduled for an EGD soon. He feels his medications working reasonably well for him and allows him to function better overall. He denies any changes in his health since we last seen him or any untoward side effects of medication. I did discuss lifestyle modifications as well as a bowel regimen. He will continue his medication at present level and return to clinic in 2 months to monitor for treatment effectiveness and compliance. 09/12/2024 Other cervical disc degeneration, unspecified cervical region (ICD-10 - M50.30) 02/15/2024 Other spondylosis with radiculopathy, thoracic region (ICD-10 - M47.24) 03/14/2024 Chronic pain syndrome (ICD-10 - G89.4) I had a nice discussion with the patient today regarding his chronic pain complaints. He status post MARILYN which she reports helped relieve his pain at least 50%. He is doing reasonably well on his current medication regimen; although, he does have his good days and bad days. He will continue his medication at present level and return to clinic in 2 months to monitor for treatment effectiveness and compliance as well as for biannual appointment with Dr. Gurrola. RECOMMEND URINE TESTING TODAY Urine drug screening will be performed today to monitor compliance with opioid therapy or to serve as a baseline screen for a patient who may be a candidate for opioid therapy in the future, pending UDS results. We will monitor with in-office testing (rapid testing) today and review the results prior to dispensing prescription. All positive results will be sent for quantitative analysis to ensure accuracy and quantify amounts. Any expected positive results that return negative will also be sent for quantitative analysis. Any questionable read or any medication we cannot test for in the office confidently will be sent for quantitative analysis, as well. Patient has been made aware of this policy and agrees to abide by our urine testing policy. The patient continues with chronic pain requiring treatment to help restore function and improve quality of life. Risks of opioid therapy as well as interaction of opioids with alcohol, illicit drugs, muscle relaxers, and other sedative medications are reviewed briefly with patient again today. The patient has trialed all other reasonable treatment options and uses the medication to alleviate pain in order to remain active and rest with less pain. No clinically relevant medication side effects are noted. Last UDS and [employer] reviewed today. Patient is advised that best long-term goals include increased activity, core strengthening, proper weight management, coping strategies, avoidance of painful triggers, and targeted interventional therapy. We will see the patient for routine follow up in accordance with all clinic policies. We did remind patient today of current guidelines to decrease opioid when possible. We will continue to stress nonopioid treatment. 03/14/2024 Other cervical disc degeneration, unspecified cervical region (ICD-10 - M50.30) 04/15/2024 Postlaminectomy syndrome, not elsewhere classified (ICD-10 - M96.1) 05/08/2024 Chronic pain syndrome (ICD-10 - G89.4) I had a nice visit with the patient today regarding his chronic pain issues. He is still getting relief from his cervical epidural but he has been having more back pain in his paraspinal and periscapular regions. He does have multiple trigger points and is interested in trigger point injections. We will get some of these scheduled for him in the near future and hopefully get things settled down as he is looking forward to going fly fishing. We will continue his medications for now and see him soon for the trigger point injections. Schedule periscapular and paraspinal TPIs 05/08/2024 Other cervical disc degeneration, unspecified cervical region (ICD-10 - M50.30) 06/25/2024 Thoracic spine pain (ICD-10 - M54.6) 06/25/2024 Other low back pain (ICD-10 - M54.59) 07/17/2024 Chronic pain syndrome (ICD-10 - G89.4) I had a nice visit with the patient today regarding his chronic pain issues. He was thinking that he had some kind of stomach issues the day of the trigger point injections, but I suspect it was something else. He did note that he had Li's the day of procedure, so it's entirely possible to be related to the injection. Either way, he notes that the area that we injected felt quite a bit better for a couple weeks and still is not bothering him near as much as some of the other areas. For now, I would like to hold off on any procedures which seems like a reasonable opinion. We will continue his medications unchanged and follow up with him in a couple months. RECOMMEND URINE TESTING TODAY Urine drug screening will be performed today to monitor compliance with opioid therapy or to serve as a baseline screen for a patient who may be a candidate for opioid therapy in the future, pending UDS results. We will monitor with in-office testing (rapid testing) today and review the results prior to dispensing prescription. All positive results will be sent for quantitative analysis to ensure accuracy and quantify amounts. Any expected positive results that return negative will also be sent for quantitative analysis. Any questionable read or any medication we cannot test for in the office confidently will be sent for quantitative analysis, as well. Patient has been made aware of this policy and agrees to abide by our urine testing policy. 07/17/2024 Other spondylosis, lumbosacral region (ICD-10 - M47.897) 08/13/2024 Radiculopathy, cervical region (ICD-10 - M54.12) 08/27/2024 Chronic GERD (ICD-10 - K21.9) 08/27/2024 Vidal's esophagus without dysplasia (ICD-10 - K22.70) 01/04/2024 Chronic pain syndrome (ICD-10 - G89.4) 01/04/2024 Thoracic radiculopathy (ICD-10 - M54.14) 01/04/2024 Other intervertebral disc degeneration, thoracic region (ICD-10 - M51.34) 08/27/2024 Hiatal hernia (ICD-10 - K44.9) 07/17/2024 Other cervical disc degeneration, unspecified cervical region (ICD-10 - M50.30) 05/08/2024 Radiculopathy, cervical region (ICD-10 - M54.12) 03/14/2024 Radiculopathy, cervical region (ICD-10 - M54.12) 09/12/2024 Other intervertebral disc degeneration, thoracic region (ICD-10 - M51.34) 10/02/2024 Vidal's esophagus without dysplasia (ICD-10 - K22.70) EGD Today 10/02/2024 Gastroesophageal reflux disease, unspecified whether esophagitis present (ICD-10 - K21.9) Diagnostic EGD today 09/12/2024 Degeneration of intervertebral disc of lumbosacral region with discogenic back pain (ICD-10 - M51.370) 03/14/2024 Other spondylosis, cervical region (ICD-10 - M47.892) 05/08/2024 Other spondylosis, cervical region (ICD-10 - M47.892) 07/17/2024 Radiculopathy, cervical region (ICD-10 - M54.12) 08/27/[address] scan, stomach (ICD-10 - R93.3) 01/04/2024 Other cervical disc degeneration, unspecified cervical region (ICD-10 - M50.30) 01/04/2024 Other spondylosis, cervical region (ICD-10 - M47.892) 08/27/2024 Status post cholecystectomy (ICD-10 - Z90.49) 07/17/2024 Other spondylosis, cervical region (ICD-10 - M47.892) 05/08/2024 Other intervertebral disc degeneration, thoracic region (ICD-10 - M51.34) 03/14/2024 Other intervertebral disc degeneration, thoracic region (ICD-10 - M51.34) 09/12/2024 Radiculopathy, cervical region (ICD-10 - M54.12) 09/12/2024 Other spondylosis, cervical region (ICD-10 - M47.892) 03/14/2024 Degeneration of intervertebral disc of lumbosacral region with discogenic back pain (ICD-10 - M51.370) 05/08/2024 Degeneration of intervertebral disc of lumbosacral region with discogenic back pain (ICD-10 - M51.370) 07/17/2024 Other intervertebral disc degeneration, thoracic region (ICD-10 - M51.34) 08/27/2024 Smoker (ICD-10 - F17.200) 01/04/2024 Radiculopathy, cervical region (ICD-10 - M54.12) 01/04/2024 Degeneration of intervertebral disc of lumbosacral region with discogenic back pain (ICD-10 - M51.370) 07/17/2024 Degeneration of intervertebral disc of lumbosacral region with discogenic back pain (ICD-10 - M51.370) 05/08/2024 Radiculopathy, lumbosacral region (ICD-10 - M54.17) 03/14/2024 Radiculopathy, lumbosacral region (ICD-10 - M54.17) 09/12/2024 Radiculopathy, lumbosacral region (ICD-10 - M54.17) 09/12/2024 Other spondylosis, lumbosacral region (ICD-10 - M47.897) 03/14/2024 Other spondylosis, lumbosacral region (ICD-10 - M47.897) 05/08/2024 Other spondylosis, lumbosacral region (ICD-10 - M47.897) 07/17/2024 Radiculopathy, lumbosacral region (ICD-10 - M54.17) 08/27/2024 Preprocedural examination (ICD-10 - Z01.818) 01/04/2024 Radiculopathy, lumbosacral region (ICD-10 - M54.17) 01/04/2024 Other spondylosis, lumbosacral region (ICD-10 - M47.897) 08/27/2024 Screening for colon cancer (ICD-10 - Z12.11) Follow-up GERD precautions: Avoid NSAIDs, alcohol, excessive coffee, large meals before bed, head of bed up on blocks, restart pantoprazole 40 mg twice a day with Pepcid. EGD with push through given abnormal findings on abdominal CT, rule out malignancy. Colon cancer risks, prevention strategies, and screening guidelines discussed with the patient. Recommend screening colonoscopy. Colonoscopy procedure, risks, benefits, potential complications, and potential interventions discussed. Bowel preparation was discussed and written instructions provided. Questions answered to apparent satisfaction. Verbalizes understanding. Desires to proceed with the proposed plan. > Schedule colonoscopy with __Dr. Benavidez> Colonoscopy bowel prep sent to preferred pharmacy and instructions were reviewed with the patient.> Advised to avoid any OTC supplements, NSAIDs, and aspirin 3 days prior to endoscopy.> Follow-up to be arranged based on endoscopy findings and interventions Smoking increases your risk for colon cancer: [id number] for smoking cessation aids. 07/17/2024 Postlaminectomy syndrome, not elsewhere classified (ICD-10 - M96.1) 05/08/2024 Postlaminectomy syndrome, not elsewhere classified (ICD-10 - M96.1) 03/14/2024 Postlaminectomy syndrome, not elsewhere classified (ICD-10 - M96.1) 09/12/2024 Postlaminectomy syndrome, not elsewhere classified (ICD-10 - M96.1) 09/12/2024 Polyosteoarthritis, unspecified (ICD-10 - M15.9) 03/14/2024 Polyosteoarthritis, unspecified (ICD-10 - M15.9) 05/08/2024 Polyosteoarthritis, unspecified (ICD-10 - M15.9) 07/17/2024 Polyosteoarthritis, unspecified (ICD-10 - M15.9) 01/04/2024 Postlaminectomy syndrome, not elsewhere classified (ICD-10 - M96.1) 01/04/2024 Polyosteoarthritis, unspecified (ICD-10 - M15.9) 07/17/2024 Bursitis of right shoulder (ICD-10 - M75.51) 05/08/2024 Bursitis of right shoulder (ICD-10 - M75.51) 03/14/2024 Bursitis of right shoulder (ICD-10 - M75.51) 09/12/2024 Bursitis of right shoulder (ICD-10 - M75.51) 09/12/2024 Unspecified abnormalities of gait and mobility (ICD-10 - R26.9) 03/14/2024 Unspecified abnormalities of gait and mobility (ICD-10 - R26.9) 05/08/2024 Unspecified abnormalities of gait and mobility (ICD-10 - R26.9) 07/17/2024 Unspecified abnormalities of gait and mobility (ICD-10 - R26.9) 01/04/2024 Bursitis of right shoulder (ICD-10 - M75.51) 01/04/2024 Unspecified abnormalities of gait and mobility (ICD-10 - R26.9) 07/17/2024 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 We will monitor with in-office testing (rapid testing) today and review the results prior to dispensing prescription, as well. Patient has been made aware of this policy. 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 He continues with occasional neck and lower back pain but his mid back pain that is taking precedence right now. He did have his thoracic MRI which I reviewed with him today MRI shows no acute thoracic spine fractures. Stable mild anterior wedging of T6, T7, and T8. T9-10 central disc protrusion and facet arthritis resulting in mild to moderate central and bilateral foraminal stenosis. Progressed since 2017. T10-11 there is moderate bilateral foraminal stenosis. T8-9 there is a small central disc protrusion and facet arthritis. Mild bilateral foraminal stenosis. T3-4 there is moderate central disc protrusion contacting and displacing the ventral thecal sac. Increased focal T2 signal in the central thoracic cord is unchanged. May be a small syrinx which has been present on prior studies. The patient's main complaint is the mid back pain that is radiating around to the front at approximately the T8-9 level. I did discuss with him trialing a T POLLO. I also discussed with him trialing thoracic medial branch blocks and rhizotomies in the future as well. Patient is open to this we will get him scheduled for T POLLO T8-9. He is doing well on his current medication regimen so he will continue that at present level. He will return to clinic after procedure to monitor for treatment effectiveness and compliance. 05/08/2024 Other I, Gilbert Zacarias, am scribing for Dr. Camden Gurrola. I, Dr. Camden Gurrola, personally performed the services described in this documentation, as scribed by Gilbert Zacarias, and it is both accurate and complete. 07/17/2024 Other I, Rubina Valentin, am scribing for Dr. Gurrola. I, Dr. Gurrola, personally performed the services described in this documentation, as scribed by Rubina Valentin, and it is both accurate and complete. Plan Of Treatment Pending Test Test Name Order Date Prothrombin Time 22055 01/12/2023 Basic Metabolic Panel (BMP) 52508 2022 CBC w\ Auto Diff [id number] 01/12/2023 Partial Thromboplastin Time 64538 2022 Chest PA/Lat-11294 01/13/2023 Chest PA/Lat-02668 01/12/2023 Electrocardiogram 12 Lead Tracing-[id number] 01/12/2023 Colonoscopy, Average Risk Screening-G012 1 08/27/2024 EGD, Upper GI Diagnostic-[id number] 5 Future Test Test Name Order Date Inj. Trigger Points, 3 or more muscles - 44821 05/10/2024 Next Appt Details Provider Name:Mona hunt, 11/07/2024 01:20:00 PM, [address] [place], [address], Insurance Providers Payer Name Payer Address Payer Phone Subscriber Number Group Number Insured Name Patient Relationship to Insured Coverage Start Date Coverage End Date [employer] [address] [place] [phone] [id number] Santos Pan Self - patient is the insured [employer] [address] [place] [address] [id number] [facility] [employer] Auth Maxim Santos Self - patient is the insured 2019 1 Medical (General) History Medical History History ICD Code Problem:Anxiety (finding) , Status :: Ac tive Problem:Chronic back pain (disorder) , S tatus :: Active Problem:Chronic pain syndrome (disorder) , Status :: Active chicken pox arthritis gerd kidney stones Surgical History Surgery Date(Month/Year) cholecystectomy back stimulator neck surgery hiatal hernia kidney stone removal tracheotomy Carpal tunnel surgery Kidney stone surgery Knee Surgery Neck surgery [facility] - [facility] - Dr. Andres Reid e 2014 Cholecystectomy - [facility] - Dr. Matt Since 2017 Spinal cord stim gen replacement - Dr. Tatyana lowe Since 2018 Hospitalization History Reason Date(Month/Year) see surgical hx
--- NOTE | 2024-10-04 09:19 | ED_ITS ---
HPI - Chest Pain 2 General: Chief Complaint: Chest Pain Stated Complaint: chest pain Time Seen by Provider: 10/04/24 08:59 Source: patient and family Mode of arrival: ambulatory Limitations: no limitations History of Present Illness: Patient is a 49-year-old male who presents to ED today with a complaint of chest pain. He states he began noticing chest pain this morning. Patient states he has a longstanding history of GI related issues. He states this morning he tried to drink coffee and it did not agree with his stomach. He began having abdominal pain and severe nausea which then progressed into chest pain. He did recently undergo (2 days ago) EGD and colonoscopy in [place] for evaluation of his GI issues. He has been told in the past that he has gastric paresis. Family states he has a history of Vidal's esophagus, peptic ulcer disease, hiatal hernia, and recently tested positive for H. Pylori-supposedly getting on medication for this. He is on Carafate among other stomach medications currently. He does use marijuana frequently for his chronic back pain. Family does report 3-4 times a year he will get 5 to 6 days worth of severe nausea and vomiting that sometimes require hospitalization. No diagnosis of cannabinoid hyperemesis syndrome that they are aware of. Patient has no known cardiac history. Denies alcohol or NSAID use. Family also concerned about whether anxiety could be playing a part in his symptoms. Family states when he woke up from anesthesia 2 days ago after his EGD/colonoscopy-he was in a full-blown PTSD attack thinking he was back in [place]. Patient and family states his anxiety has not calm down after this. MD complaint: chest pain Onset (ago): hour(s) Timing of current episode: constant Onset: during rest Pain location: substernal Pain radiation: none Severity: moderate Exacerbating factors: eating Associated symptoms: Reports abdominal pain, dyspnea, nausea and other (anxiety); Deny fever(s), palpitations or syncope Treatment prior to arrival: none Risk Factors: Coronary artery disease risk factors: none Thoracic aortic dissection risk factors: none Related Data Home Medications ?Medication ?Instructions ?Recorded ?Confirmed cetirizine 10 mg tablet 10 mg PO DAILY 06/27/2409/14 sucralfate 1 gram tablet 1 g PO QID 06/27/24 10/04/24 oxycodone 5 mg tablet 5 mg PO BID PRN Pain 5 10/04/24 famotidine 20 mg tablet (Pepcid) 20 mg PO BID 10/04/24 10/04/24 fluticasone propionate 50 1 spray intranasal DAILY PRN 10/04/24 10/04/24 mcg/actuation nasal allergies spray,suspension Previous Rx's ?Medication ?Instructions ?Recorded trazodone 150 mg tablet 150 mg PO .q hs PRN insomnia #90 08/20/24 tabs diazepam 5 mg tablet See Rx Instructions PO DAILY PRN 08/21/24 anxiety #30 tabs olanzapine 5 mg tablet (Zyprexa) 5 mg PO DAILY 3 days #3 tabs 10/04/24 Allergies Allergy/AdvReac Type Severity Reaction Status Date / Time codeine Allergy Mild Upsets Verified 10/04/24 09:07 stomach morphine Allergy Mild Upsets Verified 10/04/24 09:07 stomach Review of Systems 2 Const: Denies: fever(s), chills, body aches, fatigue or malaise ENMT: Denies: throat pain or odynophagia Card: Reports: chest pain; Denies: palpitations, irregular heart rhythm, edema, swelling of feet/ankles, lightheadedness, syncope, pre-syncope, dyspnea on exertion or orthopnea Resp: Reports: dyspnea; Denies: productive cough, non-productive cough, wheezing, pain on inspiration, change in phlegm color, hemoptysis or chest congestion GI: Reports: abdominal pain and nausea; Denies: hematemesis, diarrhea, constipation or change in bowel habits : Denies: flank pain, difficulty urinating, dysuria, urinary frequency, urinary urgency or urinary hesitancy Musc: Denies: neck pain, back pain, extremity pain or joint swelling Skin/Breast: Denies: rash Neuro: Denies: headache(s), numbness in extremities, weakness in extremities, sensory changes or dizziness PFSH ED 2 PFSH: Medical History Psychiatric care Chronic post-traumatic stress disorder (PTSD) See below. Social History Smoking and tobacco/nicotine status: former use of tobacco/nicotine Quit status (tobacco/nicotine): quit date established Second hand smoke exposure: Yes Current gender identity: Male Physical Exam 2 Const: COMMON NORMALS: average body habitus, patient oriented x3, no limitations, healthy appearing, alert and well nourished GENERAL APPEARANCE: cooperative and anxious ORIENTATION/CONSCIOUSNESS: Yes awake, Yes oriented to person, Yes oriented to place and Yes oriented to time HENMT: COMMON NORMALS: normocephalic and atraumatic HEAD & SCALP: normal to inspection, normocephalic and atraumatic FACE & SINUS: normal facial exam Eye: COMMON NORMALS: no scleral icterus GENERAL EYE: appearance normal, both eyes and all related structures Neck/C-Spine: GENERAL: Yes normal visual inspection, No anterior neck swelling and No submandibular swelling Chest: COMMONS NORMALS: normal inspection of the chest OTHER: TTP anterior chest wall pain Resp: COMMON NORMALS: normal respiratory effort and clear to auscultation bilaterally AUSCULTATION: clear to auscultation bilaterally Cardio: COMMON NORMALS: regular rhythm RATE: bradycardic RHYTHM: regular rhythm GI: COMMON NORMALS: Normal to inspection, nondistended, normoactive bowel sounds present, Soft to palpation, No hepatosplenomegaly present and no masses INSPECTION: Yes normal to inspection AUSCULTATION: Yes normoactive bowel sounds PALPATION: Yes Soft to palpation, Yes Tenderness to palpation present (GI) (diffusely), No Guarding due to palpation present (GI), No Rigid due to palpation and Yes No hepatosplenomegaly present : COMMON NORMALS: Yes no CVA tenderness BLADDER/KIDNEY EXAM: Yes no CVA tenderness Back/Pelvis: COMMON NORMALS: no CVA tenderness and thoracic and lumbar spine normal to inspection Extremity: COMMON NORMALS: capillary refill normal, no clubbing, cyanosis or edema, no calf tenderness and no pedal edema GENERAL: Yes normal exam except as noted Neuro: COMMON NORMALS: patient oriented x3, moves all extremities, no focal motor deficits, no sensory deficits noted and gait normal S ENSORIUM/ORIENTATION: Yes alert, Yes oriented to person, Yes oriented to place and Yes oriented to time Skin: COMMON NORMALS: no rashes or lesions noted GENERAL SKIN EXAM: no rashes or lesions noted Course 2 Vital Signs: Vital signs: Vital Signs Temperature 97.9 F 10/04/24 09:04 Pulse Rate 75 10/04/24 11:48 Respiratory Rate 16 10/04/24 11:48 Blood Pressure 107/78 10/04/24 11:48 Pulse Oximetry 92 10/04/24 11:48 Oxygen Delivery Me thod Room Air 10/04/24 10:33 MDM - Chest Pain Medical Decision Making Symptom etiology most likely multifactorial especially given his history of hiatal hernia, h. pylori, peptic ulcer disease, etc. Symptoms also could be contributed to cannabinoid hyperemesis syndrome or his history of gastroparesis. Symptoms thought unrelated to recent EGD/colonoscopy-nothing to suggest perforation. He got significant relief of symptoms after fluids/IV Ativan/Haldol and on reexamination is resting comfortably in no acute distress. I would have a low suspicion for cardiac etiology for his chest pain as it is most likely GI in nature. His baseline and repeat EKGs are nonischemic. Baseline and 2-hour troponins are normal. Remainder of blood work overall was nonconcerning. He did have a significant white count that was likely secondary to stress and vomiting over the past 48 hours. It was similarly elevated back in June when he was seen here for identical symptoms. At this point patient and family feel comfortable going home. He does already take a benzodiazepine at home for anxiety. Will add olanzapine over the next 72 hours to help with vomiting. Recommend follow-up with primary care and/or GI specialist. Return to ED precautions discussed. Medical Records I reviewed the patient's medical records. Lab Data I reviewed the patient's lab results. 10/04/24 09:26 10/04/24 09:26 Radiology Impressions Chest X-Ray 10/04/24 08:59 IMPRESSION: No acute intrathoracic findings. Laboratory Results WBC 21.33 10^3/uL (3.29-11.43) H 10/04/24 09:26 RBC 4.95 10^6/uL (3.85-5.65) 10/04/24 09:26 Hgb 15.20 g/dL (11.27-16.99) 10/04/24 09: Hct 42.4 % (37-53) 10/04/24 09:26 MCV 85.7 fl (82-101) 10/04/24 09: MCH 30.7 pg (27-33) 10/04/24 09: MCHC 35.8 g/dL (30-55) 10/04/24 09:26 RDW 12.5 % (12.1-15.1) 10/04/24 09:26 Plt Count 333 10^3/cmm (157-399) 10/04/24 09: MPV 9.0 fL (7.4-10.4) 10/04/24 09:26 Neut % (Auto) 77.3 % 10/04/24 09: Lymph % (Auto) 16.4 % 10/04/24 09: [place] % (Auto) 5.4 % 10/04/24 09:26 Eos % (Auto) 0.2 % 10/04/24 09:26 Baso % (Auto) 0.3 % 10/04/24 09: Neut # (Auto) 16.48 10^3/uL (1.8-7.7) H 10/04/24 09:26 Lymph # (Auto) 3.5 10^3/uL (0.8-4.8) 10/04/24 09: [place] # (Auto) 1.2 10^3/uL (0.2-0.9) H 10/04/24 09:26 Eos # (Auto) 0.1 10^3/uL (0.0-0.8) 10/04/24 09: Baso # (Auto) 0.1 10^3/uL (0.0-0.1) 10/04/24 09: Nucleated RBC % (auto) 0 % 10/04/24 09: Nucleated RBCs # 0.0 /100WBC 10/04/24 09:26 Sodium 140 mmol/L (136-145) 10/04/24 09:26 Potassium 3.5 mmol/L (3.5-5.1) 10/04/24 09: Chloride 95 mmol/L (98-107) L 10/04/24 09:26 Carbon Dioxide 27 mmol/L (22-29) 10/04/24 09:26 Anion Gap 21.5 (5-19) H 10/04/24 09:26 BUN 21 mg/dL (6-20) H 10/04/24 09:26 Creatinine 0.8 mg/dL (0.7-1.2) 10/04/24 09:26 GFR Calculation 101.9 mL/min (90-130) 10/04/24 09:26 Glucose 113 mg/dL (65-115) 10/04/24 09:26 Calculated Osmolality 294 mOsm/kg (285-295) 10/04/24 09:26 Lactic Acid 2.1 mmol/L (0.5-2.2) 10/04/24 09:26 Lactic Acid (Sepsis) 1.7 mmol/L (0.5-2.2) 10/04/24 11:04 Calcium 10.0 mg/dL (8.5-10.5) 10/04/24 09:26 Total Bilirubin 1.4 mg/dL (0.15-1.2) H 10/04/24 09:26 AST 23 U/L (0-40) 10/04/24 09:26 ALT 16 U/L (0-41) 10/04/24 09:26 Alkaline Phosphatase 65 U/L (40-130) 10/04/24 09:26 Troponin T Baseline < 6 ng/L (0-15) 10/04/24 09:26 Troponin T 120 Minute < 6.0 ng/L (0-15) 10/04/24 11:04 Delta Troponin T 0 ABS# (0-10) 10/04/24 11:04 Total Protein 7.5 g/dL (6.6-8.7) 10/04/24 09:26 Albumin 5.0 g/dL (3.5-5.2) 10/04/24 09:26 Globulin 2.5 g/dL (1.3-4.6) 10/04/24 09:26 All radiology interpretation(s) finalized by discharge Discharge Plan Discharge Patient Disposition: Home Clinical Impression: Chest pain due to gastrointestinal reflux disease, Anxiety Condition: Stable Prescriptions: New olanzapine [Zyprexa] 5 mg tablet 5 mg PO DAILY 3 Days Qty: 3 0RF No Action oxycodone 5 mg tablet 5 mg PO BID PRN (Reason: Pain) Rx Instructions: no more than 2 a day trazodone 150 mg tablet 150 mg PO .q hs PRN (Reason: insomnia) Qty: 90 0RF Rx Instructions: Take one tablet daily at bedtime, if needed for insomnia diazepam 5 mg tablet See Rx Instructions PO DAILY PRN (Reason: anxiety) Qty: 30 2RF Rx Instructions: Take one-half to one tablet daily, if needed for anxiety cetirizine 10 mg Tablet 10 mg PO DAILY sucralfate 1 gram Tablet 1 g PO QID fluticasone propionate [Flonase] 50 mcg/actuation [place],Suspension 1 spray INTRANASAL DAILY PRN (Reason: allergies) Rx Instructions: administer into each nostril famotidine [Pepcid] 20 mg Tablet 20 mg PO BID Discharge Orders: Discharge ED (Routine); Ordered 10/04/24 Ordered By: Ingrid Munguia Referrals: Amrita Tarango FNP [Primary Care Provider, Nurse Practitioner] Patient Instructions: Patient Portal & Yoko Instructions Activity Restrictions/Additional Instructions: As we discussed, patient's cardiac evaluation including chest x-ray, and baseline and repeat (2hr) troponins and EKGs are unremarkable. We discussed his symptoms most likely multifactorial including recent diagnosis of H. pylori, known gastric ulcers, hiatal hernia, Vidal's esophagus, anxiety, marijuana use, etc. He can continue his Valium at home in addition to his stomach medications and will give him Zyprexa which works similar to the Haldol he was provided today to help with further nausea and vomiting. Recommend he follow-up with primary care and/or GI specialist if symptoms persist. Return ED precautions include worsening chest pain, abdominal pain, vomiting blood, passing out episodes, fevers, intractable nausea and vomiting, or any other concerns here you may have. I hope he begins to feel better soon. 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
[2024-10-04] MEDS: LORazepam 1 MG/0.5 ML injection IVP ×2 (09:40→10:32)
[2024-10-04] MEDS: metoclopramide 5 mg/mL SDV 2 mL 10 MG IVP (09:41)
[2024-10-04] MEDS: lidocaine 2% viscous 15 ML, aluminum-mag hydrox-simethicon 30 ML, sucralfate oral liq 1 GM PO (09:41)
[2024-10-04 09:43] VITALS: BP 172/88; PULSE 48; RESP 17; O2SAT 100
[2024-10-04 09:44] LABS: Hematocrit 42.4 % (37-53); Hemoglobin 15.20 g/dL (11.27-16.99); Mean Corpuscular HGB Conc 35.8 g/dL (30-55); Mean Corpuscular Hemoglobin 30.7 pg (27-33); Mean Corpuscular Volume 85.7 fl (82-101); Nucleated Red Blood Cells % 0 %; Platelet Count 333 10^3/cmm (157-399); Red Blood Count 4.95 10^6/uL (3.85-5.65); White Blood Count 21.33 10^3/uL (3.29-11.43)
[2024-10-04 10:03] LABS: Troponin(5th) Baseline < 6 ng/L (0-15)
[2024-10-04 10:05] LABS: Alanine Aminotransferase 16 U/L (0-41); Albumin Level 5.0 g/dL (3.5-5.2); Alkaline Phosphatase 65 U/L (40-130); Anion Gap 21.5 (5-19); Aspartate Amino Transferase 23 U/L (0-40); Blood Urea Nitrogen 21 mg/dL (6-20); Calcium 10.0 mg/dL (8.5-10.5); Carbon Dioxide 27 mmol/L (22-29); Chloride 95 mmol/L (98-107); Creatinine Clr Calc Pharmacy 130.1427; Globulin 2.5 g/dL (1.3-4.6); Glucose 113 mg/dL (65-115); Osmolality Calculated 294 mOsm/kg (285-295); Potassium 3.5 mmol/L (3.5-5.1); Sodium 140 mmol/L (136-145); Total Protein 7.5 g/dL (6.6-8.7)
[2024-10-04 10:06] LABS: Lactic Sepsis W/Reflex 2.1 mmol/L (0.5-2.2)
[2024-10-04 10:20] LABS: Reflex Lactate Order REFLEX LACTIC ORDERD
[2024-10-04] MEDS: haloperidol inj 5 mg/mL INJ 1 mL 2.5 MG IVP (10:32)
[2024-10-04 10:33] VITALS: BP 153/89; PULSE 55; RESP 16; O2SAT 92
--- NOTE | 2024-10-04 11:00 | ECG_ITS ---
[facility] Date: 2024-10-04 Pat Name: Santos Pan Department: Room: Gender: Male English As A Second Language Instructor: : 1975 Requested By: Ingrid Munguia Order Number: [id number] Sam MD: Xiang Mccoy M.D. Measurements Intervals [place] Rate: 71 P: 45 WI: 154 QRS: 24 QRSD: 100 T: 46 QT: 387 QTc: 422 Interpretive Statements SINUS RHYTHM NONSPECIFIC T-WAVE ABNORMALITY Compared to ECG 10/04/2024 09:02:52 T-wave abnormality now present Sinus bradycardia no longer present Myocardial infarct finding no longer present Electronically Signed On 10-05-2024 09:39:06 CDT by Xiang Mccoy M.D. [email or web address]
[2024-10-04 11:30] LABS: Lactic Acid level (Lactate) 1.7 mmol/L (0.5-2.2)
[2024-10-04 11:31] LABS: Troponin 5 2HR < 6.0 ng/L (0-15); Troponin 5 2HR Delta 0 ABS# (0-10)
[2024-10-04 11:48] VITALS: BP 107/78; PULSE 75; RESP 16; O2SAT 92
== END 2024-10-04 11:58 | disposition home or self-care (01) ==
PROVIDERS: Emergency Provider Physician Assistant; PCP Nurse Practitioner
DX: R07.89 Other chest pain (principal); K21.9 Gastro-esophageal reflux disease without esophagitis; F41.9 Anxiety disorder, unspecified; Z87.891 Personal history of nicotine dependence
CPT/HCPCS: 36415; 71045; 80053; 83605; 84484; 85025; 93005; 96374; 96375; 96376; 99285; J1630; J2060; J2765; J9999

== ENCOUNTER → 2025-01-15 09:33 | Outpatient (BNVA) | payer OTHER, SELFPAY | PROVIDERS: PCP Nurse Practitioner; Visit Provider Podiatrist Foot & Ankle Surgery | DX: T84.84XA Pain due to internal orthopedic prosthetic devices, implants and grafts, initial encounter (principal); M96.0 Pseudarthrosis after fusion or arthrodesis; Y79.2 Prosthetic and other implants, materials and accessory orthopedic devices associated with adverse incidents | CPT/HCPCS: 99213 ==